=== PATIENT | male | born 1960 | race Caucasian/White ===

== ENCOUNTER 2019-07-16 10:18 | Inpatient (IN) | payer MEDICAID, OTHER ==
[~2019-07-16] VITALS: Ht 182.9 cm; Wt 165.1 kg
[2019-07-16 11:14] LABS: BASO % 1 % (0-3); EOS # 0.1 x10^3/uL (0.0-0.7); EOS % 1 % (0-3); HEMATOCRIT 43.8 % (39.0-53.0); HEMOGLOBIN 14.1 g/dL (13.0-17.5); LYMPH # 1.7 x10^3/uL (1.0-4.8); LYMPH % 25 % (24-48); MEAN CORPUSCULAR HEMOGLOBIN 30 pg (25-35); MEAN CORPUSCULAR HGB CONC 32 g/dL (31-37); MEAN CORPUSCULAR VOLUME 93 fL (79-100); MONO # 0.5 x10^3/uL (0.0-1.1); MONO % 8 % (0-9); NEUT # 4.4 x10^3/uL (1.8-7.7); NEUT % 65 % (31-73); PLATELET COUNT 176 x10^3/uL (140-400); RED BLOOD COUNT 4.72 x10^6/uL (4.30-5.70); RED CELL DISTRIBUTION WIDTH 15.9 % (11.5-14.5); WHITE BLOOD COUNT 6.7 x10^3/uL (4.0-11.0)
[2019-07-16] MEDS ORDERED: NITROGLYCERIN OINT 1 GM PACKET. TP ONE (11:15)
--- NOTE | 2019-07-16 11:17 | PHYS DOC ---
Past Medical History Past Medical History: A-Fib, CHF, Diabetes-Type I, High Cholesterol, Hypertension, Renal Disease Additional Past Medical Histor: Lympedema, BLE cellulitis, PE Past Surgical History: Cholecystectomy, Pacemaker Additional Past Surgical Histo: Cardiac cath, IVC filter Additional Information: Nonsmoker Alcohol Use: None Drug Use: None Adult General Chief Complaint Chief Complaint: SHORTNESS OF BREATH HPI HPI Patient is a 59-year-old male with a past medical history of heart failure, chronic venous stasis, pulmonary emboli with IVC filter, atrial fibrillation on Eliquis, and obesity that is presenting to the emergency department with increased lower extremity edema and shortness of breath. Patient states that over the last week his shortness of breath has increasingly worsened, he uses CPAP during the day and his use has increased. He does not use oxygen at home. Patient is mildly dyspneic during and a few on 2 L nasal cannula. Patient states that his LE swelling has been a problem for a year and his only pain is his legs and his back which is chronic as well. Patient denies chest pain, abdominal pain, nausea, vomiting, fever, chills, headache, confusion, dysuria, and increased frequency. Patient denies trauma. Review of Systems Review of Systems Constitutional: Denies fever or chills Eyes: Denies redness or eye pain HENT: Denies nasal congestion or sore throat Respiratory: Reports cough and shortness breath Cardiovascular: Denies chest pain or palpitations GI: Denies abdominal pain, nausea, or vomiting : Denies dysuria or hematuria Musculoskeletal: Denies joint pain, reports back pain, reports leg swelling Integument: Reports chronic venous stasis bilateral lower extremity Neurologic: Denies headache, focal weakness or sensory changes Complete systems were reviewed and found to be within normal limits, except as documented in this note. Current Medications Current Medications Current Medications Medications (Trade) Dose Ordered Sig/[facility] Start Time Stop Time Status Last Admin Dose Admin Fentanyl Citrate (Fentanyl 2ml Vial) 75 mcg 1X ONCE 07/16/19 11:30 07/16/19 11:31 DC 07/16/19 11:33 75 MCG Nitroglycerin (Nitro-Bid Oint) 0.5 inch 1X ONCE 07/16/19 11:15 07/16/19 11:16 DC 07/16/19 11:13 0.5 INCH Allergies Allergies Allergies Coded Allergies Type Severity Reaction Last Updated Verified No Known Drug Allergies 07/16/19 No Physical Exam Physical Exam Constitutional: Well developed, well nourished, no acute distress, non-toxic appearance HENT: Normocephalic, atraumatic, oropharynx moist Eyes: Conjunctiva normal, no discharge Neck: Normal range of motion, no tenderness, supple Cardiovascular: Paced rate, regular rhythm, no murmur Lungs & Thorax: Crackles heard throughout, no wheezing Abdomen: Soft, no tenderness, distended Skin: Warm, dry, no erythema, BLE chronic venous stasis noted Back: No tenderness, no CVA tenderness Extremities: No tenderness, ROM intact, BLE 3+ edema with chronic venous stasis Neurologic: Alert and oriented X 3, no focal deficits noted Psychologic: Affect normal, judgement normal Current Patient Data Vital Signs Vital Signs Date Time Temp Pulse Resp B/P (MAP) Pulse Ox O2 Delivery O2 Flow Rate FiO2 07/16/19 11:37 86 22 116/86 (96) 97 Nasal Cannula 2.0 07/16/19 10:20 98.6 98.6 Lab Values Laboratory Tests Test 07/16/19 10:50 White Blood Count 6.7 x10^3/uL (4.0-11.0) Red Blood Count 4.72 x10^6/uL (4.30-5.70) Hemoglobin 14.1 g/dL (13.0-17.5) Hematocrit 43.8 % (39.0-53.0) Mean Corpuscular Volume 93 fL (79-100) Mean Corpuscular Hemoglobin 30 pg (25-35) Mean Corpuscular Hemoglobin Concent 32 g/dL (31-37) Red Cell Distribution Width 15.9 % (11.5-14.5) H Platelet Count 176 x10^3/uL (140-400) Neutrophils (%) (Auto) 65 % (31-73) Lymphocytes (%) (Auto) 25 % (24-48) Monocytes (%) (Auto) 8 % (0-9) Eosinophils (%) (Auto) 1 % (0-3) Basophils (%) (Auto) 1 % (0-3) Neutrophils # (Auto) 4.4 x10^3/uL (1.8-7.7) Lymphocytes # (Auto) 1.7 x10^3/uL (1.0-4.8) Monocytes # (Auto) 0.5 x10^3/uL (0.0-1.1) Eosinophils # (Auto) 0.1 x10^3/uL (0.0-0.7) Basophils # (Auto) 0.0 x10^3/uL (0.0-0.2) Sodium Level 141 mmol/L (136-145) Potassium Level 3.9 mmol/L (3.5-5.1) Chloride Level 102 mmol/L (98-107) Carbon Dioxide Level 33 mmol/L (21-32) H Anion Gap 6 (6-14) Blood Urea Nitrogen 24 mg/dL (8-26) Creatinine 1.3 mg/dL (0.7-1.3) Estimated GFR (Cockcroft-Gault) 56.7 BUN/Creatinine Ratio 18 (6-20) Glucose Level 109 mg/dL (70-99) H Lactic Acid Level 1.2 mmol/L (0.4-2.0) Calcium Level 8.8 mg/dL (8.5-10.1) Magnesium Level 1.9 mg/dL (1.8-2.4) Total Bilirubin 0.9 mg/dL (0.2-1.0) Aspartate Amino Transferase (AST) 14 U/L (15-37) L Alanine Aminotransferase (ALT) 10 U/L (16-63) L Alkaline Phosphatase 58 U/L (46-116) Creatine Kinase 78 U/L (39-308) Creatine Kinase MB (Mass) 2.1 ng/mL (0.0-3.6) Creatine Kinase MB Relative Index 2.7 % (0-4) Troponin I Quantitative < 0.017 ng/mL (0.000-0.055) GY-Ips-V-Type Natriuretic Peptide 2561 pg/mL (0-124) H Total Protein 6.7 g/dL (6.4-8.2) Albumin 3.0 g/dL (3.4-5.0) L Albumin/Globulin Ratio 0.8 (1.0-1.7) L Lipase 39 U/L (73-393) L Laboratory Tests 07/16/19 10:50 Laboratory Tests 07/16/19 10:50 EKG EKG EKG at 1116 irregular rhythm at 104 bpm, atrial fibrillation, intermittent paced rhythm, left axis deviation. Radiology/Procedures Radiology/Procedures PROCEDURE: CHEST PA & LATERAL Chest, PA and Lateral: Technique: PA and lateral views of the chest were obtained. History: Shortness of breath, congestive heart failure. Comparison: None. Findings: Left-sided cardiac pacer is identified.. Bibasilar lung consolidation changes likely pneumonia or atelectasis. Mild prominent bilateral interstitial lung markings.. . Impression: 1.Bibasilar lung consolidation changes, right greater than left, likely pneumonia, follow-up to resolution. 2. Mild prominent bilateral interstitial lung markings likely congestive changes. Electronically signed by: Ney Bermudez MD (07/16/2019 11:19 AM) [facility] Course & Med Decision Making Course & Med Decision Making Pertinent Labs and Imaging studies reviewed. (See chart for details) Patient is a 59-year-old male past medical history of heart failure, chronic venous stasis, pulmonary emboli with IVC filter, atrial fibrillation on Eliquis, and obesity is presenting to emergency department with increased shortness of breath and increased lower extremity edema. Patient was seen and examined on that side. Physical exam was significant for dyspnea, crackles heard throughout, draining chronic venous stasis, distended abdomen, and leg tenderness. Labs and imaging ordered. EKG at 1116 irregular rhythm at 104 bpm, atrial fibrillation, intermittent paced rhythm, left axis deviation. Chest x-ray shows bibasilar opacities right greater than left, right side representing pleural effusion versus pneumonia, clinical picture supports congestive heart failure exacerbation, white count normal, no fever, no changes in sputum production. Will continue to treat congestive heart failure exacerbation and will forego antibiotics at this time. Initial troponin negative, lipase negative, BNP elevated, lactic acid normal, all others labs at baseline. Patient will be admitted for CHF exacerbation. IV lasix given. Patient requiring admission for further evaluation and treatment. Discussed with Dr. Bajwa (PCP) who is in agreement with admission. Discussed findings and plan with patient, who acknowledges understanding and agreement. Dragon Disclaimer Dragon Disclaimer This electronic medical record was generated, in whole or in part, using a voice recognition dictation system. Departure Departure Impression: Primary Impression: Acute exacerbation of CHF (congestive heart failure) Disposition: ADMITTED INPATIENT Admitting Physician: Madi. Hurst Condition: STABLE Problem Qualifiers Primary Impression: Acute exacerbation of CHF (congestive heart failure) Heart failure type: unspecified Qualified Codes: I50.9 - Heart failure, unspecified FLACA HERNANDEZ DO Jul 16, 2019 11:17
--- NOTE | 2019-07-16 11:22 | RAD ---
Chest, PA and Lateral: Technique: PA and lateral views of the chest were obtained. History: Shortness of breath, congestive heart failure. Comparison: None. Findings: Left-sided cardiac pacer is identified.. Bibasilar lung consolidation changes likely pneumonia or atelectasis. Mild prominent bilateral interstitial lung markings.. . Impression: 1.Bibasilar lung consolidation changes, right greater than left, likely pneumonia, follow-up to resolution. 2. Mild prominent bilateral interstitial lung markings likely congestive changes. Electronically signed by: Ney Bermudez MD (07/16/2019 11:19 AM) [facility]
[2019-07-16 11:28] LABS: CALCIUM 8.8 mg/dL (8.5-10.1); CREATININE 1.3 mg/dL (0.7-1.3); GFR 56.7; POTASSIUM 3.9 mmol/L (3.5-5.1)
[2019-07-16] MEDS ORDERED: fentaNYL PF VIAL 100 MCG/2 ML VIAL IV ONE (11:30)
[2019-07-16 11:35] LABS: ALBUMIN/GLOBULIN RATIO 0.8 (1.0-1.7); MAGNESIUM 1.9 mg/dL (1.8-2.4); TOTAL BILIRUBIN 0.9 mg/dL (0.2-1.0); TOTAL PROTEIN 6.7 g/dL (6.4-8.2)
[2019-07-16] MEDS ORDERED: DEXTROSE 50% 25 GM / 50ML DISP.SYRIN. IV PRN (11:45)
[2019-07-16] MEDS ORDERED: FUROSEMIDE 40 MG/4 ML VIAL. IVP ONE (11:45)
[2019-07-16] MEDS ORDERED: IV DEXTROSE 5% 250 ML BAG. IV PRN (11:45)
[2019-07-16] MEDS ORDERED: ONDANSETRON PF 4 MG/2 ML VIAL. IV PRN (11:45)
[2019-07-16] MEDS: INSULIN LISPRO 300 UNITS/3 ML VIAL. SQ SCH ×3 (12:00→17:00)
[2019-07-16 13:50] VITALS: BP 127/86
[2019-07-16] MEDS ORDERED: ENAL2.5T PO (15:22)
[2019-07-16] MEDS ORDERED: CALC500T31 PO (15:22)
[2019-07-16] MEDS ORDERED: ATOR20TA58 PO (15:22)
[2019-07-16] MEDS ORDERED: AMIO200T4 PO (15:22)
[2019-07-16] MEDS ORDERED: ACET325T21 PO (15:22)
[2019-07-16] MEDS ORDERED: BISA10SU55 RC (15:22)
[2019-07-16] MEDS ORDERED: APIX5TAB PO (15:22)
[2019-07-16] MEDS ORDERED: CARV3.1210 PO (15:22)
[2019-07-16] MEDS ORDERED: MELA3TAB43 PO (15:23)
[2019-07-16] MEDS ORDERED: MAGN2400 PO (15:23)
[2019-07-16] MEDS ORDERED: GABA600T7 PO (15:23)
[2019-07-16] MEDS ORDERED: METO5TAB4 PO (15:23)
[2019-07-16] MEDS ORDERED: ONDA4TAB7 PO (15:23)
[2019-07-16] MEDS ORDERED: POTA20TA4 PO (15:23)
[2019-07-16] MEDS ORDERED: SENN8.6T11 PO (15:23)
[2019-07-16] MEDS ORDERED: FURO40TA4 PO (15:23)
[2019-07-16] MEDS ORDERED: INSU100V13 SQ (15:23)
[2019-07-16] MEDS ORDERED: HYDR-3135 PO (15:23)
[2019-07-16] MEDS ORDERED: POLY2500 MC (15:23)
[2019-07-16] MEDS ORDERED: ALBU2.5V8 IH (15:23)
[2019-07-16] MEDS ORDERED: INSU100C4 SQ (15:23)
[2019-07-16] MEDS ORDERED: ACETAMINOPHEN 325 MG TABLET. PO PRN (15:30)
[2019-07-16] MEDS ORDERED: BISACODYL 10 MG SUPP.RECT. RC PRN (15:30)
[2019-07-16] MEDS ORDERED: ALBUTEROL SULFATE 2.5 MG/3 ML NEBU. NEB PRN (15:30)
[2019-07-16] MEDS ORDERED: CALCIUM CARBONATE 500 MG TABLET PO PRN (15:30)
[2019-07-16] MEDS ORDERED: POLYETHYLENE GLYCOL 3350 17 GM PACKET. PO PRN (15:39)
[2019-07-16] MEDS ORDERED: MAGNESIUM HYDROXIDE 2,400 MG/30 ML ORAL.SUSP. PO PRN (15:45)
[2019-07-16] MEDS ORDERED: ONDANSETRON ODT 4 MG TAB.RAPDIS. PO PRN (15:45)
[2019-07-16] MEDS: CARVEDILOL 3.125 MG TABLET. PO SCH (17:02)
[2019-07-16] MEDS: POTASSIUM CHLORIDE 20 MEQ TABLET.ER. PO SCH (17:02)
[2019-07-16] MEDS: FUROSEMIDE 40 MG/4 ML VIAL. IVP SCH (17:05)
[2019-07-16 19:20] VITALS: BP 103/72
[2019-07-16] MEDS ORDERED: NON FORMULARY ITEM (Melatonin 3 MG) PO SCH (21:00)
[2019-07-16] MEDS: ATORVASTATIN CALCIUM 20 MG TABLET PO SCH (21:48)
[2019-07-16] MEDS: GABAPENTIN 300 MG CAPSULE. PO SCH (21:48)
[2019-07-16] MEDS: APIXABAN 5 MG TABLET. PO SCH (21:48)
[2019-07-16] MEDS: INSULIN GLARGINE SYRINGE. SQ SCH (21:54)
[2019-07-16] MEDS: traZODone 50 MG TABLET. PO PRN (22:21)
[2019-07-16] MEDS: HYDROcodone/APAP 5/325MG 1 TAB TABLET PO PRN (22:21)
[2019-07-16 22:50] VITALS: BP 134/91
[2019-07-17 03:05] VITALS: BP 120/85
[2019-07-17 04:27] LABS: BASO % 1 % (0-3); EOS # 0.1 x10^3/uL (0.0-0.7); EOS % 2 % (0-3); HEMATOCRIT 42.6 % (39.0-53.0); HEMOGLOBIN 13.9 g/dL (13.0-17.5); LYMPH # 1.9 x10^3/uL (1.0-4.8); LYMPH % 32 % (24-48); MEAN CORPUSCULAR HEMOGLOBIN 30 pg (25-35); MEAN CORPUSCULAR HGB CONC 33 g/dL (31-37); MEAN CORPUSCULAR VOLUME 93 fL (79-100); MONO # 0.6 x10^3/uL (0.0-1.1); MONO % 10 % (0-9); NEUT # 3.2 x10^3/uL (1.8-7.7); NEUT % 55 % (31-73); PLATELET COUNT 169 x10^3/uL (140-400); RED BLOOD COUNT 4.58 x10^6/uL (4.30-5.70); RED CELL DISTRIBUTION WIDTH 15.9 % (11.5-14.5); WHITE BLOOD COUNT 5.9 x10^3/uL (4.0-11.0)
[2019-07-17 04:55] LABS: CALCIUM 8.5 mg/dL (8.5-10.1); CREATININE 1.3 mg/dL (0.7-1.3); GFR 56.7; MAGNESIUM 2.2 mg/dL (1.8-2.4); POTASSIUM 4.2 mmol/L (3.5-5.1)
[2019-07-17 07:00] VITALS: BP 112/78
--- NOTE | 2019-07-17 07:28 | EKG ---
[facility] [address] [place] [address] Test Date: 2019-07-16 Test Time: 11:16:47 Pat Name: FLACA VEGA Department: Room: 252 1 Gender: M Paint Tester: : 1960 Requested By: FLACA HERNANDEZ Order Number: [id number] Reading MD: Law Carter MD Measurements Intervals [place] Rate: 104 P: NV: QRS: -52 QRSD: 106 T: 19 QT: 386 QTc: 515 Interpretive Statements V-PACING UNDERLYING ATRIAL FIBRILLATION Electronically Signed On 07-17-2019 11:50:02 NATURAL SCIENCE MANAGER by Law Carter MD
[2019-07-17] MEDS: HYDROcodone/APAP 5/325MG 1 TAB TABLET PO PRN ×3 (07:34→22:23)
[2019-07-17] MEDS: INSULIN LISPRO 300 UNITS/3 ML VIAL. SQ SCH ×5 (08:00→17:00)
[2019-07-17] MEDS: APIXABAN 5 MG TABLET. PO SCH ×2 (08:50→22:22)
[2019-07-17] MEDS: POTASSIUM CHLORIDE 20 MEQ TABLET.ER. PO SCH ×3 (08:50→17:00)
[2019-07-17] MEDS: SENNOSIDES 8.6 MG TABLET PO SCH (08:50)
[2019-07-17] MEDS: CARVEDILOL 3.125 MG TABLET. PO SCH ×2 (08:50→17:00)
[2019-07-17] MEDS: AMIODARONE HCL 200 MG TABLET. PO SCH (08:50)
[2019-07-17] MEDS: metOLazone 2.5 MG TABLET PO SCH (08:51)
[2019-07-17] MEDS: FUROSEMIDE 40 MG/4 ML VIAL. IVP SCH ×2 (08:51→14:43)
[2019-07-17] MEDS: NYSTATIN TOPICAL POWDER 15GM BOTTLE. TP SCH ×2 (08:58→22:22)
[2019-07-17] MEDS: INSULIN GLARGINE SYRINGE. SQ SCH ×2 (09:00→22:37)
[2019-07-17 11:00] VITALS: BP 104/68
--- NOTE | 2019-07-17 12:09 | HP ---
ADMIT DATE: 07/16/2019 HISTORY OF PRESENT ILLNESS: The patient is a 59-year-old male patient who was at [facility] for rehab and was discharged with home health. He has been at home only for 2 days and he came back with worsening shortness of breath and marked weight gain. According to nursing staff, he has gained about 25 pounds. He also complained of orthopnea and paroxysmal nocturnal dyspnea and worsening swelling of both lower extremities. He uses CPAP during day and his use has increased, and therefore, he was sent to the Emergency Room of [facility] for further evaluation and treatment. His lab work showed that his white cell count was normal and his chemistry was unremarkable. His chest x-ray showed that he has bibasilar lung consolidation changes, likely pneumonia or atelectasis, mildly prominent bilateral interstitial lung marking and was admitted with diagnosis of acute on chronic, probably diastolic congestive heart failure. He also has morbid obesity, obstructive sleep apnea. I did switch him to IV Lasix and added metolazone and consulted the cardiology team to assist with his treatment. 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 PAST SURGICAL HISTORY: Significant for cholecystectomy, permanent pacemaker placement, cardiac catheterization and IVC filter placement. ALLERGIES: He has no known drug allergies. MEDICATIONS: He is currently on following medications: He is on albuterol sulfate 2 puffs every 6 hours, apixaban 5 mg twice a day, amiodarone 200 mg once a day, atorvastatin calcium 20 mg once a day, carvedilol 3.125 mg twice a day with meals, enalapril 2.5 mg once a day, hydrocodone/APAP 10/325 one tablet every 4 hours, Tylenol 650 mg every 4-6 hours, gabapentin 300 mg at bedtime, calcium carbonate 500 mg every 6 hours, potassium chloride 20 mEq once a day, furosemide 40 mg twice a day and metolazone 5 mg daily. He is on bisacodyl 10 mg suppository daily p.r.n. for constipation, milk of magnesia 30 mL p.o. daily p.r.n. for constipation, senna 1 tablet once a day, ondansetron 4 mg every 6 hours. He is on NovoLog 10 units subcutaneously twice a day and Levemir 45 units subcutaneously twice a day, melatonin 3 mg at bedtime, polyethylene glycol 17 g daily p.r.n. for constipation. REVIEW OF SYSTEMS: As per history of present illness. PHYSICAL EXAMINATION: GENERAL: On arrival to the Emergency Room, the patient was somewhat tachypneic, but there was no pallor, jaundice, cyanosis or thyromegaly. No jugular venous distention, but marked bilateral lower extremity lymphedema. VITAL SIGNS: His heart rate was 96, blood pressure was 123/81, temperature was 98.6, respiratory rate was 28 and oxygen saturation was 96% on 2 liters of oxygen. HEAD, EYES, EARS, NOSE AND THROAT: Normocephalic, atraumatic. NECK: Supple. CARDIAC: Normal first and second sounds. No gallop, rub or murmur. CHEST: Clear to auscultation. No crepitation or rhonchi. ABDOMEN: Distended, soft, nontender. NEUROLOGIC: He was awake, alert, responding appropriately. All his cranial nerves are intact. He moves extremities without difficulty. He ambulates with a walker. EXTREMITIES: Showed no clubbing, cyanosis, but marked bilateral lower extremity chronic venous stasis. LABORATORY DATA: On admission showed a white cell count 6700, hemoglobin 14, hematocrit 44, MCV 93 and platelet count of 176,000. His chemistry showed a serum sodium 141, potassium 3.9, chloride 102, bicarbonate 33, anion gap of 6, BUN 24, creatinine 1.3, estimated GFR was 56 mL per minute, his glucose 109, calcium was 8.8, magnesium was 1.9. Total bilirubin, AST, ALT, alkaline phosphatase were normal. Total protein was 6.7, albumin 3. His beta natriuretic peptide was 2560 and troponin was less than 0.07. Lactic acid was only 1.2. ASSESSMENT AND PLAN: In summary, this is a 59-year-old male patient who was admitted with increasing shortness of breath, orthopnea and dramatic weight gain of about 25 pounds. He denied any chest pain. Clinically and radiologically seemed to be in congestive heart failure. I did switch him to IV Lasix 40 mg twice a day as well as metolazone 5 mg once a day and we will do 2 more sets of cardiac enzyme and consult the cardiology team. Meanwhile, we will continue with all his other medications. Continue with his CPAP. ELIEL MOSER MD DR: LING/gia JOB#: [id number] / [id number]
--- NOTE | 2019-07-17 12:48 | PDOC2 ---
[facility] [employer] 07/17/19 1248: CARDIAC CONSULT DATE OF CONSULT Date of Consult DATE: 07/17/19 TIME: 12:42 REASON FOR CONSULT Reason for Consult: CHF REFERRING PHYSICIAN Referring Physician: Dr. Bajwa SOURCE Source: Chart review, Patient HISTORY OF PRESENT ILLNESS HISTORY OF PRESENT ILLNESS This is a 59 yo male who presented secondary to shortness of breath and increased LE edema. Patient reports symptoms started about a month ago. Much worse that last weeks. Associated with orthopnea. No CP, dizziness, diaphoresis, palpitations, or nausea/vomiting. Has a history of NICM. Cath earlier this year at [facility] without obstructive disease. AICD was placed over the summer at [facility]. Follows with Dr. Mojica. Reports compliance with meds and dietary Na intake. PAST MEDICAL HISTORY Cardiovascular: AFIB (s/p CV), CHF, HTN, Hyperlipidemia, Other (PAD) Pulmonary: Other (ALESSANDRO) CENTRAL NERVOUS SYSTEM: Periperal neuropathy Heme/Onc: Other (DVT/PE) Psych: Anxiety, Depression Endocrine: Diabetes PAST SURGICAL HISTORY Past Surgical History: Pacemaker (AICD), Cholecystectomy FAMILY HISTORY Family History: Diabetes, Heart Disease, Hypertension SOCIAL HISTORY Smoke: No ALCOHOL: none Drugs: None Lives: Alone CURRENT MEDICATIONS CURRENT MEDICATIONS Current Medications Medications (Trade) Dose Ordered Sig/[facility]by Route PRN Reason Start Time Stop Time Status Last Admin Dose Admin Acetaminophen (Tylenol) 650 mg PRN Q4HRS PRN PO pain or fever 07/16/19 15:30 07/16/19 17:51 Amiodarone HCl (Cordarone) 200 mg DAILY PO 07/17/19 09:00 07/17/19 08:50 Apixaban (Eliquis) 5 mg BID PO 07/16/19 21:00 07/17/19 08:50 Atorvastatin Calcium (Lipitor) 20 mg HS PO 07/16/19 21:00 07/16/19 21:48 Carvedilol (Coreg) 3.125 mg BIDWMEALS PO 07/16/19 17:00 07/17/19 08:50 Sennosides (Senna) 8.6 mg DAILY PO 07/17/19 09:00 07/17/19 08:50 Gabapentin (Neurontin) 300 mg QHS PO 07/16/19 21:00 07/16/19 21:48 Insulin Glargine (Lantus Syringe) 45 unit BID SQ 07/16/19 21:00 07/17/19 11:47 DC 07/16/19 21:54 Metolazone (Zaroxolyn) 5 mg DAILY PO 07/17/19 09:00 07/17/19 08:51 Furosemide (Lasix) 40 mg BID92 IVP 07/16/19 16:30 07/17/19 08:51 Potassium Chloride (Klor-Con) 20 meq TIDWMEALS PO 07/16/19 17:00 07/17/19 08:50 Acetaminophen/ Hydrocodone Bitart (Lortab 5/325) 1 tab PRN Q4HRS PRN PO PAIN 07/16/19 22:15 07/16/19 22:21 Acetaminophen/ Hydrocodone Bitart (Lortab 5/325) 2 tab PRN Q4HRS PRN PO PAIN 07/16/19 22:15 07/17/19 07:34 Nystatin (Nystop) 1 yuki BID TP 07/17/19 09:00 07/17/19 08:58 Trazodone HCl (Desyrel) 50 mg PRN QHS PRN PO INSOMNIA 07/16/19 22:15 07/16/19 22:21 ALLERGIES ALLERGIES: Coded Allergies: No Known Drug Allergies (Unverified , 07/16/19) ROS Review of System 14 point ROS conducted with pertinent positives noted above in HPI PHYSICAL EXAM General: Alert, Oriented X3, Cooperative, mild distress HEENT: Atraumatic, Mucous membr. moist/pink Lungs: Other (crackles ) Heart: Other (AFIB with controlled rate, 2/6 systolic murmur ) Abdomen: Soft, Other (obese ) Extremities: Other (chronic venous stasis changes, 1-2+ bilateral LE edema) Neuro: Normal speech, Sensation intact Psych/Mental Status: Mental status NL, Mood NL MUSCULOSKELETAL: Osteoarthritic changes both hands VITALS/I&O VITALS/I&O: Vital Signs Date Time Temp Pulse Resp B/P (MAP) Pulse Ox O2 Delivery O2 Flow Rate FiO2 07/17/19 11:00 97.3 72 18 104/68 (80) 92 Room Air 97.3 07/16/19 20:00 2.0 I & O 07/16/19 07/16/19 07/17/19 14:59 22:59 06:59 Intake Total 200 ml Output Total 1350 ml Balance -1350 ml 200 ml LABS Lab: Laboratory Tests Test 07/16/19 14:07 07/16/19 14:50 07/16/19 17:24 07/16/19 18:00 Glucose (Fingerstick) 83 mg/dL (70-99) 109 mg/dL (70-99) H Troponin I Quantitative < 0.017 ng/mL (0.000-0.055) < 0.017 ng/mL (0.000-0.055) Test 07/16/19 20:30 07/17/19 03:00 07/17/19 07:22 07/17/19 08:01 Glucose (Fingerstick) 153 mg/dL (70-99) H 49 mg/dL (70-99) L 90 mg/dL (70-99) White Blood Count 5.9 x10^3/uL (4.0-11.0) Red Blood Count 4.58 x10^6/uL (4.30-5.70) Hemoglobin 13.9 g/dL (13.0-17.5) Hematocrit 42.6 % (39.0-53.0) Mean Corpuscular Volume 93 fL (79-100) Mean Corpuscular Hemoglobin 30 pg (25-35) Mean Corpuscular Hemoglobin Concent 33 g/dL (31-37) Red Cell Distribution Width 15.9 % (11.5-14.5) H Platelet Count 169 x10^3/uL (140-400) Neutrophils (%) (Auto) 55 % (31-73) Lymphocytes (%) (Auto) 32 % (24-48) Monocytes (%) (Auto) 10 % (0-9) H Eosinophils (%) (Auto) 2 % (0-3) Basophils (%) (Auto) 1 % (0-3) Neutrophils # (Auto) 3.2 x10^3/uL (1.8-7.7) Lymphocytes # (Auto) 1.9 x10^3/uL (1.0-4.8) Monocytes # (Auto) 0.6 x10^3/uL (0.0-1.1) Eosinophils # (Auto) 0.1 x10^3/uL (0.0-0.7) Basophils # (Auto) 0.0 x10^3/uL (0.0-0.2) Sodium Level 143 mmol/L (136-145) Potassium Level 4.2 mmol/L (3.5-5.1) Chloride Level 105 mmol/L (98-107) Carbon Dioxide Level 27 mmol/L (21-32) Anion Gap 11 (6-14) Blood Urea Nitrogen 23 mg/dL (8-26) Creatinine 1.3 mg/dL (0.7-1.3) Estimated GFR (Cockcroft-Gault) 56.7 Glucose Level 77 mg/dL (70-99) Calcium Level 8.5 mg/dL (8.5-10.1) Magnesium Level 2.2 mg/dL (1.8-2.4) ZT-Lhz-L-Type Natriuretic Peptide 2576 pg/mL (0-124) H Test 07/17/19 12:03 Glucose (Fingerstick) 78 mg/dL (70-99) Laboratory Tests 07/17/19 03:00 Laboratory Tests 07/17/19 03:00 ASSESSMENT/PLAN ASSESSMENT/PLAN 1. Acute on chronic systolic CHF; triggered by AFIB? Reports compliance with fluid and Na intake 2. Non-ischemic cardiomyopathy; s/p AICD ([facility])- place 01/2019. Leora reagan this year reportedly without obstructive CAD 3. PAFIB; s/p previous CV. On Amiodarone. Presently AFIB with controlled rate 4. Hypertension; controlled 5. Hyperlipidemia 6. Diabetes, II 7. H/o PE/DVT; s/p IVC filter. On Eliquis 8. Morbid obesity 9. Venous insufficiency Recommendations Diuresis HF optimization therapy Device interrogation. Note AFIB burden, guide antiarrhythmic therapy Continue Amiodarone therapy for now. Continue Eliquis for stroke prophylaxis Obtain records from [facility] Consider addition of SILVANO Blanco MD 07/17/19 0717: CARDIAC CONSULT ASSESSMENT/PLAN ASSESSMENT/PLAN Pt. seen and examined. Agree with above VETERINARY ATTENDANT note. 59 y.o male with presumed nonischemic cardio myopathy. Plan for aggressive diuresis and continuation of current medical therapy. We will await interrogation of the ICD to rule out any significant atrial fibrillation burden He's had a history of significant A. fib burden may been discontinued amiodarone as it is not been able to keep him in sinus rhythm. Supportive care for now. Await outside hospital records. Continue aggressive d PETER Hoffman APRN Jul 17, 2019 12:48 SILVANO MIRANDA MD Jul 17, 2019 17:23
[2019-07-17 15:00] VITALS: BP 127/89
--- NOTE | 2019-07-17 17:46 | NUR ---
Wound Care Pt seen for wound consult re: RLE, see wound assessment. Pt has 2 open areas on his right lower leg, slough covered, periwound edematous and red, with skin changes consistent with Lymphedema. Per pt, he dropped something on his leg causing the wounds. Wounds cleaned, lotion to BLE, wounds covered with Medihoney, Xeroform gauze, ABD and kerlix, Size G Medigrip applied to BLE from base of toes to just below knees, and pt educated on leg elevation to help with swelling, pt v/u, but continued to sit with legs in dependent position. No other wounds noted on full skin inspection, although buttocks are red, but blanchable, will order a wheelchair cushion for recliner. Pt asking where he is and how he got here, informed ALE Burris of sudden change in mentation, and bed alarm set, ROPING MACHINE TENDER at bedside. Will continue to follow for wound care needs.
[2019-07-17] MEDS ORDERED: ALBUTEROL SULFATE 2.5 MG/3 ML NEBU. NEB PRN (19:00)
[2019-07-17 19:42] VITALS: BP 134/95
[2019-07-17] MEDS: GABAPENTIN 300 MG CAPSULE. PO SCH (22:22)
[2019-07-17] MEDS: ATORVASTATIN CALCIUM 20 MG TABLET PO SCH (22:23)
[2019-07-17 22:26] VITALS: BP 117/92
[2019-07-18 03:35] VITALS: BP 132/81
[2019-07-18 05:51] LABS: CREATININE 1.4 mg/dL (0.7-1.3); GFR 52.1; MAGNESIUM 1.9 mg/dL (1.8-2.4); POTASSIUM 3.6 mmol/L (3.5-5.1)
[2019-07-18 07:00] VITALS: BP 137/97
[2019-07-18] MEDS: INSULIN LISPRO 300 UNITS/3 ML VIAL. SQ SCH ×5 (08:00→17:00)
[2019-07-18] MEDS: metOLazone 2.5 MG TABLET PO SCH (09:25)
[2019-07-18] MEDS: SENNOSIDES 8.6 MG TABLET PO SCH (09:26)
[2019-07-18] MEDS: CARVEDILOL 3.125 MG TABLET. PO SCH (09:26)
[2019-07-18] MEDS: POTASSIUM CHLORIDE 20 MEQ TABLET.ER. PO SCH ×3 (09:26→18:05)
[2019-07-18] MEDS: AMIODARONE HCL 200 MG TABLET. PO SCH (09:26)
[2019-07-18] MEDS: APIXABAN 5 MG TABLET. PO SCH ×2 (09:27→22:09)
[2019-07-18] MEDS: FUROSEMIDE 40 MG/4 ML VIAL. IVP SCH ×2 (09:28→14:38)
[2019-07-18] MEDS: LISINOPRIL 5 MG TABLET. PO SCH (09:33)
[2019-07-18] MEDS: NYSTATIN TOPICAL POWDER 15GM BOTTLE. TP SCH ×2 (09:33→22:10)
--- NOTE | 2019-07-18 10:35 | PDOC ---
PETER BURNETT CORPORATE INTERN 07/18/19 1035: CARDIO Progress Notes Date and Time Date of Service 07/18/19 Time of Evaluation 1020 Subjective Subjective: No Chest Pain, Other (shortness of breath and LE edema improving ) Vitals Vitals Vital Signs Date Time Temp Pulse Resp B/P (MAP) Pulse Ox O2 Delivery O2 Flow Rate FiO2 07/18/19 09:33 104 137/97 07/18/19 07:00 97.6 16 90 Room Air 97.6 07/17/19 23:23 15.0 Weight Weight [ ] Input and Output Intake and Output Intake and Output 07/18/19 07:00 Intake Total 1250 ml Output Total 3650 ml Balance -2400 ml Intake Oral 1250 ml Output Urine Total 3650 ml Laboratory Labs Laboratory Tests Test 07/17/19 12:03 07/17/19 17:21 07/17/19 20:34 07/18/19 05:05 Glucose (Fingerstick) 78 mg/dL (70-99) 113 mg/dL (70-99) 163 mg/dL (70-99) Sodium Level 142 mmol/L (136-145) Potassium Level 3.6 mmol/L (3.5-5.1) Chloride Level 102 mmol/L (98-107) Carbon Dioxide Level 33 mmol/L (21-32) Anion Gap 7 (6-14) Blood Urea Nitrogen 23 mg/dL (8-26) Creatinine 1.4 mg/dL (0.7-1.3) Estimated GFR (Cockcroft-Gault) 52.1 Glucose Level 132 mg/dL (70-99) Calcium Level 9.0 mg/dL (8.5-10.1) Magnesium Level 1.9 mg/dL (1.8-2.4) Test 07/18/19 05:53 07/18/19 07:37 Glucose (Fingerstick) 138 mg/dL (70-99) 150 mg/dL (70-99) Physical Exam HEENT: Neck Supple W Full Motion Chest: Symmetric LUNGS: Other (diminished bases) Heart: S1S2, irregularly irregular Abdomen: Soft N/T, Other (obese ) Extremities: Other (2+ bilateral LE edema ) Neurology: alert, oriented, follow commands Assessment Assessment 1. Acute on chronic systolic CHF; fluid volume ^ since April per device interrogation. Good UOP with diuresis 2. Non-ischemic cardiomyopathy; s/p AICD ([employer])- device interrogation in 100% AFIB burden since implantation. 3. Persistent AIFB; rate controlled overall. Intermittent RVR noted 4. Hypertension; controlled 5. Hyperlipidemia 6. Diabetes, II 7. H/o PE/DVT; s/p IVC filter. On Eliquis 8. Morbid obesity 9. Venous insufficiency Recommendations Ongoing diuresis; monitor Cr. May need RHC HF optimization therapy. BB, ACEi, lasix. Reinforced 2000cc FR Discontinue Amidorone as he is 100% AFIB Will convert coreg to Toprol for better rate control. RVR may be contributing to acute CHF Continue Eliquis for stroke prophylaxis Await records from [facility] Consider addition of Entresto Supportive care SILVANO MIRANDA MD 07/19/19 1523: CARDIO Progress Notes Plan Plan Late entry for 07/18/2019. Pt. seen and examined. Agree with above GEOGRAPHIC AREA INTELLIGENCE OFFICER note. PETER BURNETT APRN Jul 18, 2019 10:35 SILVANO MIRANDA MD Jul 19, 2019 15:23
[2019-07-18 11:00] VITALS: BP 124/79
[2019-07-18] MEDS ORDERED: METOPROLOL SUCC 24HR ER 50 MG TAB.ER.24H. PO SCH (11:00)
[2019-07-18 15:00] VITALS: BP 132/92
[2019-07-18 19:00] VITALS: BP 112/82
[2019-07-18] MEDS: HYDROcodone/APAP 5/325MG 1 TAB TABLET PO PRN (22:09)
[2019-07-18] MEDS: GABAPENTIN 300 MG CAPSULE. PO SCH (22:09)
[2019-07-18] MEDS: ATORVASTATIN CALCIUM 20 MG TABLET PO SCH (22:09)
[2019-07-18] MEDS: INSULIN GLARGINE SYRINGE. SQ SCH (22:18)
[2019-07-18 23:00] VITALS: BP 157/93
--- NOTE | 2019-07-18 23:37 | PN ---
DATE: 07/18/2019 SUBJECTIVE: The patient is resting, slightly propped up in bed, sleeping comfortably with BiPAP machine on. On questioning him, he denied any complaint. The nursing staff stated that the patient has been sleepy, apparently has not slept last night very well, although on questioning him, he denied any chest pain or shortness of breath. PHYSICAL EXAMINATION: GENERAL: When I examined him, he looked pale, but no jaundice, cyanosis or thyromegaly. No jugular venous distention. Marked bilateral lower limb edema. VITAL SIGNS: His heart rate was 100, blood pressure was 137/97, temperature was 97.6, respiratory rate was 16, and oxygen saturation was 90% on room air. HEAD, EYES, EARS, NOSE AND THROAT: Showed normocephalic, atraumatic. NECK: Supple. CARDIAC: Normal first and second heart sounds. No gallop or murmur. CHEST: Clear to auscultation. No crepitation or rhonchi. ABDOMEN: Markedly distended, soft, nontender. NEUROLOGIC: He is sleepy, but arousable. All cranial nerves intact. He moves extremities without difficulty. His intake over the last 24 hours was 200, output was 1350. LABORATORY DATA: His white cell count is 5900, hemoglobin 14, hematocrit 42, MCV 93, and platelet count of 169,000. His chemistry showed a serum sodium 142, potassium 3.6, chloride 102, bicarbonate 33, anion gap of 7, BUN 23, creatinine 1.4, estimated GFR was 52 mL per minute, his glucose 132, calcium was 9, magnesium was 1.9. ASSESSMENT: 1. Acute on chronic systolic congestive heart failure. 2. Nonischemic cardiomyopathy, status post automatic implantable cardioverter-defibrillator. Apparently cardiac catheterization showed nonobstructive coronary artery disease. 3. Paroxysmal atrial fibrillation, status post previous cerebrovascular accident on amiodarone. 4. Hypertension, well controlled. 5. Hyperlipidemia. 6. Type 2 diabetes mellitus. 7. Morbid obesity and obstructive sleep apnea, on CPAP. 8. History of pulmonary embolism and deep venous thrombosis, status post IVC filter, on Eliquis. 9. Chronic venous insufficiency. PLAN: To continue with present treatment. He is already on Lasix 40 mg IV twice a day as well as metolazone 5 mg daily. We will continue to monitor his blood sugar and adjust insulin as needed. Continue amiodarone to control the heart rate and Eliquis for stroke prevention. ELIEL MOSER MD DR: LING/gia JOB#: [id number] / [id number]
[2019-07-19 03:20] VITALS: BP 109/74
[2019-07-19 07:00] VITALS: BP 125/78
[2019-07-19 07:08] LABS: CALCIUM 8.7 mg/dL (8.5-10.1); CREATININE 1.5 mg/dL (0.7-1.3); GFR 48.1; MAGNESIUM 1.9 mg/dL (1.8-2.4); POTASSIUM 3.3 mmol/L (3.5-5.1)
[2019-07-19] MEDS: INSULIN LISPRO 300 UNITS/3 ML VIAL. SQ SCH ×5 (08:00→17:00)
[2019-07-19] MEDS: LISINOPRIL 5 MG TABLET. PO SCH (09:00)
[2019-07-19] MEDS: metOLazone 2.5 MG TABLET PO SCH (09:02)
[2019-07-19] MEDS: SENNOSIDES 8.6 MG TABLET PO SCH (09:03)
[2019-07-19] MEDS: MULTIVITAMIN I-VITE TABLET. PO SCH (09:03)
[2019-07-19] MEDS: POTASSIUM CHLORIDE 20 MEQ TABLET.ER. PO SCH ×3 (09:03→21:33)
[2019-07-19] MEDS: METOPROLOL SUCC 24HR ER 50 MG TAB.ER.24H. PO SCH (09:04)
[2019-07-19] MEDS: APIXABAN 5 MG TABLET. PO SCH ×2 (09:04→21:37)
[2019-07-19 11:00] VITALS: BP 125/84
[2019-07-19] MEDS: AMIODARONE HCL 200 MG TABLET. PO SCH (12:57)
[2019-07-19] MEDS: NYSTATIN TOPICAL POWDER 15GM BOTTLE. TP SCH ×2 (12:58→21:34)
--- NOTE | 2019-07-19 13:15 | PN ---
DATE: 07/19/2019 SUBJECTIVE: The patient is sitting at the edge of the bed, eating his breakfast comfortably, in no apparent distress. On questioning him, he stated he is feeling generally much better. He, in fact, is maintaining his oxygen saturation at 97% on room air. His legs continue to be swollen and weepy. His creatinine is creeping up and the patient is concerned about that and his potassium also is trending down. PHYSICAL EXAMINATION: GENERAL: When I examined him this morning, he looked well and was clearly in no apparent respiratory distress. No pallor, jaundice, cyanosis or thyromegaly. No jugular venous distention with marked bilateral lower extremity lymphedema. VITAL SIGNS: His heart rate was 95, blood pressure was 125/78, temperature 97.8, respiratory rate 20, and oxygen saturation was 95% on room air. HEAD, EYES, EARS, NOSE AND THROAT: Showed normocephalic, atraumatic. NECK: Supple. HEART: Normal first and second sounds. No gallop or murmur. CHEST: Shows central trachea, equally reduced expansion, reduced air entry, vesicular sounds. I could not appreciate any crepitation or rhonchi. ABDOMEN: Markedly distended, soft, nontender. NEUROLOGIC: He is awake, alert, responding appropriately. All cranial nerves are intact. He moves extremities without difficulty. His intake over the last 24 hours was 1250, output was 3650. LABORATORY DATA: As of this morning, his white cell count was 5900, hemoglobin 14, hematocrit 42, MCV 93, and platelet count 269,000. His chemistry this morning showed a serum sodium 141, potassium 3.3, chloride 101, bicarbonate 32, anion gap of 8, BUN 24, creatinine 1.5, estimated GFR was 48 mL per minute, glucose 97, calcium was 8.7, and total magnesium was 1.9. His TSH was slightly elevated at 5.02. ASSESSMENT: 1. Acute on chronic congestive heart failure. 2. Nonischemic cardiomyopathy, status post automatic implantable cardioverter defibrillator. Apparently cardiac catheterization showed nonobstructive coronary artery disease. 3. Paroxysmal atrial fibrillation, status post previous cerebrovascular accident on amiodarone. 4. Hypertension, well controlled. 5. Hyperlipidemia. 6. Type 2 diabetes mellitus. 7. Morbid obesity and obstructive sleep apnea, on CPAP. 8. History of pulmonary embolism and deep vein thrombosis, status post IVC filter and currently on Eliquis. 9. Chronic venous insufficiency. PLAN: My plan is to replenish his potassium. We will consult the lymphedema therapist for lymphedema lab. ELIEL MOSER MD DR: LING/gia JOB#: [id number] / [id number]
[2019-07-19] MEDS: FUROSEMIDE 40 MG/4 ML VIAL. IVP SCH ×2 (13:45→14:00)
[2019-07-19 15:00] VITALS: BP 121/75
[2019-07-19 19:57] VITALS: BP 129/84
[2019-07-19] MEDS: traZODone 50 MG TABLET. PO PRN (21:30)
[2019-07-19] MEDS: ATORVASTATIN CALCIUM 20 MG TABLET PO SCH (21:30)
[2019-07-19] MEDS: HYDROcodone/APAP 5/325MG 1 TAB TABLET PO PRN (21:31)
[2019-07-19] MEDS: GABAPENTIN 300 MG CAPSULE. PO SCH (21:33)
[2019-07-19] MEDS: INSULIN GLARGINE SYRINGE. SQ SCH (21:39)
[2019-07-19 23:46] VITALS: BP 125/83
[2019-07-20 03:59] VITALS: BP 124/80
[2019-07-20 05:47] LABS: CALCIUM 8.8 mg/dL (8.5-10.1); CREATININE 1.5 mg/dL (0.7-1.3); GFR 48.1; POTASSIUM 3.6 mmol/L (3.5-5.1)
[2019-07-20 07:00] VITALS: BP 118/70
[2019-07-20] MEDS: INSULIN LISPRO 300 UNITS/3 ML VIAL. SQ SCH ×5 (08:00→17:50)
--- NOTE | 2019-07-20 08:03 | PN ---
DATE: 07/20/2019 SUBJECTIVE: The patient is resting, slightly propped up, sleeping comfortably on BiPAP machine, maintaining his oxygen saturation at 97%. On questioning him, he denied any complaint. Nursing staff did not voice any concerns that he had an eventful night. PHYSICAL EXAMINATION: GENERAL: When I examined him, he looked pale, but no jaundice, cyanosis or thyromegaly. No jugular venous distension. No lower limb edema. VITAL SIGNS: His heart rate was 93, blood pressure was 124/80, temperature 97.4, respiratory rate was 16, and oxygen saturation was 97% on BiPAP machine. He obviously continued to have bilateral lower extremity edema. His intake over the last 24 hours was 380, output was 2740. LABORATORY DATA: As of this morning, his serum sodium 141, potassium 3.6, chloride 101, bicarbonate 34, anion gap of 6, BUN 28, creatinine 1.5, estimated GFR was 48 mL per minute, his glucose 144, and calcium was 8.8. His white cell count was 5900, hemoglobin 14, hematocrit 42, MCV 93, and platelet count 269,000. ASSESSMENT: 1. [id number] congestive heart failure. 2. Nonischemic cardiomyopathy, status post automatic implantable defibrillator, apparently cardiac catheterization showed nonobstructive coronary artery disease. 3. Paroxysmal atrial fibrillation, status post previous cerebrovascular accident, currently on amiodarone. 4. Hypertension, well controlled. 5. Hyperlipidemia. 6. Type 2 diabetes that seems to be reasonably controlled. 7. Morbid obesity, obstructive sleep apnea, on CPAP. 8. History of pulmonary embolism and deep vein thrombosis, status post IVC filter, currently on Eliquis. 9. Chronic venous insufficiency. 10. Acute kidney injury, creatinine has risen to 1.5 mg/dL. PLAN: To continue with IV Lasix and metolazone. Continue with BiPAP. Continue to monitor his blood sugar and adjust insulin as needed. Continue with pain management. ELIEL MOSER MD DR: LING/gia JOB#: [id number] / [id number]
[2019-07-20] MEDS: SENNOSIDES 8.6 MG TABLET PO SCH (09:00)
[2019-07-20] MEDS: FUROSEMIDE 40 MG/4 ML VIAL. IVP SCH ×2 (09:02→13:10)
[2019-07-20] MEDS: MULTIVITAMIN I-VITE TABLET. PO SCH (09:02)
[2019-07-20] MEDS: LISINOPRIL 5 MG TABLET. PO SCH (09:03)
[2019-07-20] MEDS: APIXABAN 5 MG TABLET. PO SCH ×2 (09:03→21:14)
[2019-07-20] MEDS: POTASSIUM CHLORIDE 20 MEQ TABLET.ER. PO SCH ×2 (09:03→21:00)
[2019-07-20] MEDS: HYDROcodone/APAP 5/325MG 1 TAB TABLET PO PRN ×2 (09:04→21:14)
[2019-07-20] MEDS: AMIODARONE HCL 200 MG TABLET. PO SCH (09:04)
[2019-07-20] MEDS: METOPROLOL SUCC 24HR ER 50 MG TAB.ER.24H. PO SCH (09:04)
[2019-07-20] MEDS: metOLazone 2.5 MG TABLET PO SCH (09:04)
[2019-07-20] MEDS: NYSTATIN TOPICAL POWDER 15GM BOTTLE. TP SCH ×2 (09:07→21:00)
[2019-07-20 11:00] VITALS: BP 103/72
[2019-07-20] MEDS: SPIRONOLACTONE 25 MG TABLET PO SCH (13:10)
--- NOTE | 2019-07-20 13:10 | NUR ---
SS following for discharge planning. SS reviewed pt chart. Pt is from [facility], ; fax [phone]. SS contacted [facility] and spoke with Froilan. She reported that pt is a residential and rehabilitation pt from there facility. She reported that pt was discharge to home and then came back to there facility for continued rehabilitation two days after discharge. She reported that pt is able to return once medically stable for discharge. SS will continue to follow for discharge planning.
[2019-07-20] MEDS: fentaNYL PF VIAL 100 MCG/2 ML VIAL IV PRN (14:13)
[2019-07-20 15:00] VITALS: BP 149/62
--- NOTE | 2019-07-20 15:47 | PDOC ---
BROOKE DUARTE MARTIAL ARTS INSTRUCTOR 07/20/19 1547: CARDIO Progress Notes Date and Time Date of Service 07/20/2019 Time of Evaluation 1230 Subjective Subjective: No Chest Pain, Other (shortness of breath and LE edema improving ) Vitals Vitals Vital Signs Date Time Temp Pulse Resp B/P (MAP) Pulse Ox O2 Delivery O2 Flow Rate FiO2 07/20/19 11:00 97.8 91 16 103/72 (82) 98 Nasal Cannula 97.8 07/20/19 08:00 2.0 Weight Weight [ ] Input and Output Intake and Output Intake and Output 07/20/19 07:00 Intake Total 1010 ml Output Total 260 ml Balance 750 ml Intake Oral 1010 ml Output Urine Total 260 ml # Voids 1 # Bowel Movements 1 Laboratory Labs Laboratory Tests Test 07/19/19 17:11 07/19/19 20:20 07/20/19 03:50 07/20/19 07:37 Glucose (Fingerstick) 181 mg/dL (70-99) 160 mg/dL (70-99) 134 mg/dL (70-99) Sodium Level 141 mmol/L (136-145) Potassium Level 3.6 mmol/L (3.5-5.1) Chloride Level 101 mmol/L (98-107) Carbon Dioxide Level 34 mmol/L (21-32) Anion Gap 6 (6-14) Blood Urea Nitrogen 28 mg/dL (8-26) Creatinine 1.5 mg/dL (0.7-1.3) Estimated GFR (Cockcroft-Gault) 48.1 Glucose Level 144 mg/dL (70-99) Calcium Level 8.8 mg/dL (8.5-10.1) Test 07/20/19 11:35 Glucose (Fingerstick) 147 mg/dL (70-99) Physical Exam HEENT: Neck Supple W Full Motion Chest: Symmetric LUNGS: Other (basilar crackles) Heart: irregularly irregular (AFIB) Abdomen: Soft N/T, Other (obese ) Extremities: Other (2+ bilateral LE edema ) Neurology: alert, oriented, follow commands Assessment Assessment 1. Acute on chronic systolic CHF: remains overloaded 2. NICM with AICD 3. Chronic AIFB: rate controlled 4. Hypertension; controlled 5. Hyperlipidemia 6. Diabetes, II 7. H/o PE/DVT; s/p IVC filter. On Eliquis 8. Morbid obesity 9. Venous insufficiency/dermatitis/stasis lesions Recommendations 1. Continue lasix/zaroxylyn therapy. add aldactone. 2000cc FR 2. Lisinopril. Toprol for rate control. 100% AFIB burden since 01/2019, DC amiodarone. 3. Eliquis for stroke prevention 4. Continue secondary prevention measures 5. Monitor renal function, BMP this afternoon and pending his UOP will add additional lasix tonight. SILVANO MIRANDA MD 07/20/19 2012: CARDIO Progress Notes Plan Plan Patient seen and examined. Agree with above nurse practitioner note. His urine output has decreased. We will plan for aggressive diuresis but his lower extremity edema could also be related to lymphedema and venous stasis. If he has any significant decreases in renal function we may consider a right heart catheterization but otherwise supportive care for now. BROOKE DUARTE APRN Jul 20, 2019 15:47 SILVANO MIRANDA MD Jul 20, 2019 20:12
[2019-07-20 16:33] LABS: CALCIUM 8.6 mg/dL (8.5-10.1); CREATININE 1.4 mg/dL (0.7-1.3); GFR 52.1; MAGNESIUM 1.9 mg/dL (1.8-2.4)
[2019-07-20 16:36] LABS: POTASSIUM 4.2 mmol/L (3.5-5.1)
[2019-07-20 19:21] VITALS: BP 108/73
--- NOTE | 2019-07-20 20:00 | NUR ---
Spoke with cardiology VAMP WETTER and an additional dose of 40 IV lasix was asked to be administered. Spoke with pt about poor urinary output and pt states not using the urinal much today r/t multiple bowel movements. Dw pt about giving lasix, pt is refusing, stating "I put out a ton today and want sleep." VSS, will continue to monitor for status changes.
[2019-07-20] MEDS: traZODone 50 MG TABLET. PO PRN (21:13)
[2019-07-20] MEDS: GABAPENTIN 300 MG CAPSULE. PO SCH (21:14)
[2019-07-20] MEDS: ATORVASTATIN CALCIUM 20 MG TABLET PO SCH (21:14)
[2019-07-20] MEDS: INSULIN GLARGINE SYRINGE. SQ SCH (21:15)
[2019-07-20 23:42] VITALS: BP 114/72
[2019-07-21 03:59] VITALS: BP 126/77
[2019-07-21 06:21] LABS: CALCIUM 8.5 mg/dL (8.5-10.1); CREATININE 1.4 mg/dL (0.7-1.3); GFR 52.1; MAGNESIUM 1.9 mg/dL (1.8-2.4); POTASSIUM 4.2 mmol/L (3.5-5.1)
[2019-07-21 07:00] VITALS: BP 128/81
[2019-07-21] MEDS: INSULIN LISPRO 300 UNITS/3 ML VIAL. SQ SCH ×5 (08:00→17:00)
[2019-07-21] MEDS: MULTIVITAMIN I-VITE TABLET. PO SCH (08:56)
[2019-07-21] MEDS: HYDROcodone/APAP 5/325MG 1 TAB TABLET PO PRN ×2 (08:56→21:18)
[2019-07-21] MEDS: METOPROLOL SUCC 24HR ER 50 MG TAB.ER.24H. PO SCH (08:56)
[2019-07-21] MEDS: LISINOPRIL 5 MG TABLET. PO SCH (08:56)
[2019-07-21] MEDS: FUROSEMIDE 40 MG/4 ML VIAL. IVP SCH ×2 (08:57→15:40)
[2019-07-21] MEDS: APIXABAN 5 MG TABLET. PO SCH ×2 (08:57→21:15)
[2019-07-21] MEDS: SPIRONOLACTONE 25 MG TABLET PO SCH (08:57)
[2019-07-21] MEDS: metOLazone 2.5 MG TABLET PO SCH (08:57)
[2019-07-21] MEDS: POTASSIUM CHLORIDE 20 MEQ TABLET.ER. PO SCH ×2 (08:57→21:15)
[2019-07-21] MEDS: NYSTATIN TOPICAL POWDER 15GM BOTTLE. TP SCH ×2 (08:58→21:00)
[2019-07-21] MEDS: SENNOSIDES 8.6 MG TABLET PO SCH (09:00)
--- NOTE | 2019-07-21 09:08 | PN ---
DATE: 07/21/2019 SUBJECTIVE: The patient is sitting at the edge of the bed, complaining of severe pain in his left groin area, which is very macerated and markedly erythematous. He continues to have marked bilateral lower extremity edema. He continues to ooze. PHYSICAL EXAMINATION: GENERAL: When I examined him, he looked well and was clearly in no apparent respiratory distress. No pallor, jaundice, cyanosis or thyromegaly. No jugular venous distention, but marked generalized anasarca. VITAL SIGNS: Her heart rate was 93, blood pressure 126/77, temperature 98, respiratory rate was 16, and oxygen saturation was 95% on room air. HEAD, EYES, EARS, NOSE AND THROAT: Normocephalic, atraumatic. NECK: Supple. HEART: Showed normal first and second heart sounds. No gallop, rub or murmur. CHEST: Clear to auscultation. No crepitation or rhonchi. ABDOMEN: Markedly distended, soft, nontender. Has marked erythema and maceration of his particularly left groin area. There is no tenderness. No guarding or rigidity. Bowel sounds normal. NEUROLOGIC: He is awake, alert, responding appropriately. All cranial nerves are intact. He moves extremities without difficulty. He has marked bilateral chronic venous stasis and bilateral lower limb edema. His intake over the last 24 hours was 1000, output was only 260. LABORATORY DATA: Most recent lab work showed a white cell count 5900, hemoglobin 14, hematocrit 42, MCV 93, and platelet count of 169,000. Serum sodium was 141, potassium 4.2, chloride 101, bicarbonate 32, anion gap of 8, BUN 27, creatinine 1.4, estimated GFR was 118 mL per minute. His calcium and magnesium were normal. His free T4 is 1.2 indicating that he has compensated hypothyroidism. ASSESSMENT: 1. In summary, this is a 59-year-old male patient with acute on chronic congestive heart failure. 2. Nonischemic cardiomyopathy, status post automatic implantable defibrillator. Apparently cardiac catheterization showed nonobstructive coronary artery disease. 3. Paroxysmal atrial fibrillation, status post previous cerebrovascular accident, currently on amiodarone. 4. Hypertension, well controlled. 5. Hyperlipidemia. 6. Type 2 diabetes, seems to be reasonably controlled. 7. Morbid obesity, obstructive sleep apnea, on CPAP. 8. History of pulmonary embolism and deep vein thrombosis, status post IVC filter, currently on Eliquis. 9. Chronic venous insufficiency. 10. Acute kidney injury. Creatinine is actually stable around 1.4 mg/dL. 11. Severe intertriginous candidiasis involving particularly left groin area. PLAN: To continue with IV Lasix and metolazone as well as spironolactone. Continue with BiPAP machine, continue to monitor his blood sugar and adjust insulin as needed. Continue with pain management. I will discuss the finding with the Infectious Disease to see whether other options available to treat this severe intertriginous candidiasis with marked maceration and erythema involving the left groin area. ELIEL MOSER MD DR: LING/gia JOB#: [id number] / [id number]
[2019-07-21 11:00] VITALS: BP 115/61
[2019-07-21] MEDS: FLUCONAZOLE 100 MG TABLET. PO SCH (13:08)
--- NOTE | 2019-07-21 14:00 | NUR ---
SS following up with discharge planning. SS phoned and faxed clinical updates to [facility], ; fax [phone]. SS will continue to follow for discharge planning.
[2019-07-21] MEDS ORDERED: fentaNYL PF VIAL 100 MCG/2 ML VIAL IVP ONE (14:15)
--- NOTE | 2019-07-21 14:42 | PDOC ---
PETER BURNETT CERTIFICATION AND SELECTION SPECIALIST 07/21/19 1442: CARDIO Progress Notes Date and Time Date of Service 07/21/19 Time of Evaluation 1410 Subjective Subjective: No Chest Pain, Other (C/o right sided pain with wound) Vitals Vitals Vital Signs Date Time Temp Pulse Resp B/P (MAP) Pulse Ox O2 Delivery O2 Flow Rate FiO2 07/21/19 11:00 97.4 84 22 115/61 (79) 94 Room Air 97.4 07/21/19 08:00 2.0 Weight Weight [ ] Input and Output Intake and Output Intake and Output 07/21/19 07:00 Intake Total 1440 ml Output Total 1200 ml Balance 240 ml Intake Oral 1440 ml Output Urine Total 1200 ml # Voids 2 # Bowel Movements 2 Laboratory Labs Laboratory Tests Test 07/20/19 16:15 07/20/19 16:47 07/20/19 20:52 07/21/19 04:50 Sodium Level 134 mmol/L (136-145) 141 mmol/L (136-145) Potassium Level 4.2 mmol/L (3.5-5.1) 4.2 mmol/L (3.5-5.1) Chloride Level 99 mmol/L (98-107) 101 mmol/L (98-107) Carbon Dioxide Level 30 mmol/L (21-32) 32 mmol/L (21-32) Anion Gap 5 (6-14) 8 (6-14) Blood Urea Nitrogen 27 mg/dL (8-26) 27 mg/dL (8-26) Creatinine 1.4 mg/dL (0.7-1.3) 1.4 mg/dL (0.7-1.3) Estimated GFR (Cockcroft-Gault) 52.1 52.1 Glucose Level 167 mg/dL (70-99) 118 mg/dL (70-99) Calcium Level 8.6 mg/dL (8.5-10.1) 8.5 mg/dL (8.5-10.1) Magnesium Level 1.9 mg/dL (1.8-2.4) 1.9 mg/dL (1.8-2.4) Glucose (Fingerstick) 166 mg/dL (70-99) 185 mg/dL (70-99) Free Thyroxine 1.20 ng/dL (0.76-1.46) Thyroxine (T4) 8.0 ug/dL (4.5-12.0) Total Triiodothyronine 92 ng/dL (71-180) Test 07/21/19 08:08 07/21/19 11:48 Glucose (Fingerstick) 121 mg/dL (70-99) 127 mg/dL (70-99) Physical Exam HEENT: Neck Supple W Full Motion Chest: Symmetric LUNGS: Other (basilar crackles) Heart: irregularly irregular (AFIB) Abdomen: Soft N/T, Other (obese ) Extremities: Other (2+ bilateral LE edema, weepy bilateral LE) Neurology: alert, oriented, follow commands Assessment Assessment 1. Acute on chronic systolic CHF: remains overloaded. UOP not completely accurate as he is not always able to use urinal for measuring 2. NICM with AICD ([employer]) 3. Chronic AIFB: rate controlled 4. Hypertension; controlled 5. Hyperlipidemia 6. Diabetes, II 7. H/o PE/DVT; s/p IVC filter. On Eliquis 8. Morbid obesity 9. Venous insufficiency; LE weepy 10. CKD; Cr stable with diuresis Recommendations Ongoing diuresis with zaroxylyn and aldactone. Will try Bumex 2000cc FR, 2Gm Na diet Accurate I and O as best as possible Metoprolol for rate control Eliquis for stroke prophylaxis Secondary prevention measures Consider for [facility] SILVANO MIRANDA MD 07/21/19 2355: PETER BURNETT APRN Jul 21, 2019 14:42 SILVANO MIRANDA MD Jul 21, 2019 23:55
[2019-07-21 15:00] VITALS: BP 133/92
[2019-07-21] MEDS: BUMETANIDE 1 MG/4 ML VIAL. IV SCH (17:54)
[2019-07-21 19:00] VITALS: BP 113/73
[2019-07-21] MEDS: ATORVASTATIN CALCIUM 20 MG TABLET PO SCH (21:15)
[2019-07-21] MEDS: GABAPENTIN 300 MG CAPSULE. PO SCH (21:15)
[2019-07-21] MEDS: INSULIN GLARGINE SYRINGE. SQ SCH (21:16)
--- NOTE | 2019-07-21 21:38 | NUR ---
Requested to do wound care to patients pannus areas and legs. Pt got aggressive stating your not touching anything. Told patient of importance of doing wound care for healing purposes. Pt Refused. Pt also refused a CHG bath. Will continue to monitor.
[2019-07-21 23:34] VITALS: BP 120/68
[2019-07-22 03:15] VITALS: BP 128/58
[2019-07-22 06:22] LABS: HEMATOCRIT 42.1 % (39.0-53.0); HEMOGLOBIN 13.7 g/dL (13.0-17.5); RED BLOOD COUNT 4.52 x10^6/uL (4.30-5.70); RED CELL DISTRIBUTION WIDTH 15.9 % (11.5-14.5); WHITE BLOOD COUNT 6.9 x10^3/uL (4.0-11.0)
[2019-07-22 06:41] LABS: ALBUMIN/GLOBULIN RATIO 0.9 (1.0-1.7); CALCIUM 8.8 mg/dL (8.5-10.1); CREATININE 1.5 mg/dL (0.7-1.3); GFR 48.1; POTASSIUM 4.2 mmol/L (3.5-5.1); TOTAL BILIRUBIN 0.7 mg/dL (0.2-1.0); TOTAL PROTEIN 6.3 g/dL (6.4-8.2)
[2019-07-22 07:13] VITALS: BP 124/77
[2019-07-22] MEDS: INSULIN LISPRO 300 UNITS/3 ML VIAL. SQ SCH ×5 (08:00→18:30)
[2019-07-22] MEDS: MULTIVITAMIN I-VITE TABLET. PO SCH (08:41)
[2019-07-22] MEDS: LISINOPRIL 5 MG TABLET. PO SCH (08:42)
[2019-07-22] MEDS: METOPROLOL SUCC 24HR ER 50 MG TAB.ER.24H. PO SCH (08:42)
[2019-07-22] MEDS: metOLazone 2.5 MG TABLET PO SCH (08:42)
[2019-07-22] MEDS: BUMETANIDE 1 MG/4 ML VIAL. IV SCH ×2 (08:43→15:31)
[2019-07-22] MEDS: SPIRONOLACTONE 25 MG TABLET PO SCH (08:43)
[2019-07-22] MEDS: APIXABAN 5 MG TABLET. PO SCH ×2 (08:43→20:33)
[2019-07-22] MEDS: POTASSIUM CHLORIDE 20 MEQ TABLET.ER. PO SCH ×2 (08:43→20:33)
[2019-07-22] MEDS: NYSTATIN TOPICAL POWDER 15GM BOTTLE. TP SCH ×2 (08:44→20:35)
[2019-07-22] MEDS: FLUCONAZOLE 100 MG TABLET. PO SCH (08:44)
[2019-07-22] MEDS: HYDROcodone/APAP 5/325MG 1 TAB TABLET PO PRN ×2 (08:45→20:34)
[2019-07-22] MEDS: SENNOSIDES 8.6 MG TABLET PO SCH (08:50)
--- NOTE | 2019-07-22 08:52 | PN ---
DATE: 07/22/2019 SUBJECTIVE: The patient is resting slightly propped up in bed, sleeping comfortably with BiPAP machine. Nursing staff stated that he was very aggressive, uncooperative and he did not allow her to change the dressing. PHYSICAL EXAMINATION: GENERAL: When I saw him this morning, he was somewhat pale, but no jaundice, cyanosis or thyromegaly. No jugular venous distention, but marked bilateral lower extremity edema. VITAL SIGNS: His heart rate was 78, blood pressure was 128/58, temperature 97.6, respiratory rate was 18 and oxygen saturation was 95% on BiPAP machine. HEAD, EYES, EARS, NOSE AND THROAT: Normocephalic, atraumatic. NECK: Supple. HEART: Showed normal first and second heart sounds. No gallop or murmur. CHEST: Clear to auscultation. No crepitation or rhonchi. ABDOMEN: Distended, soft, nontender. NEUROLOGIC: He was sleepy, but arousable. All cranial nerves are intact. He moves extremities without difficulty. He has severe intertriginous candidiasis involving his left groin and perianal area. His intake over the last 24 hours was 1440, output was 1200. LABORATORY DATA: As of this morning, his white cell count was 6900, hemoglobin 13.7, hematocrit 42, MCV 93, and platelet count of 171,000. His chemistry showed a serum sodium 141, potassium 4.2, chloride 100, bicarbonate 34, anion gap of 7, BUN 25, creatinine 1.5, estimated GFR was 48 mL per minute, his glucose 122, calcium was 8.8. Total bilirubin, AST, ALT, alkaline phosphatase were normal. Total protein 6.3, albumin was 3 g/dL, although his TSH slightly elevated. His total T4, free T4 and total T3 are all within normal range, indicating that he has compensated hypothyroidism. ASSESSMENT: 1. Acute on chronic systolic congestive heart failure. 2. Nonischemic cardiomyopathy, status post automatic implantable cardioverter defibrillator, apparently cardiac catheterization showed nonobstructive coronary artery disease. 3. Paroxysmal atrial fibrillation, status post previous cerebrovascular accident, currently on amiodarone. 4. Hypertension well controlled. 5. Hyperlipidemia. 6. Type 2 diabetes mellitus seems to be reasonably controlled. 7. Morbid obesity, obstructive sleep apnea, on CPAP. 8. History of pulmonary embolism and deep vein thrombosis, status post IVC filter, currently on Eliquis. 9. Chronic venous insufficiency. 10. Acute kidney injury with creatinine that has been stable around 1.4 mg/dL. 11. Severe intertriginous candidiasis involving particularly left groin area, treated with nystatin powder, seemed to be a little bit more dry today. PLAN: Plan is to obviously continue with nystatin powder and fluconazole orally. Continue with Bumex 1 mg IV twice a day together with spironolactone and metolazone. Continue with fluid restriction. Continue potassium supplementation. Continue with pain management. Continue to monitor his blood sugar and adjust insulin as needed. ELIEL MOSER MD DR: LING/gia JOB#: [id number] / [id number]
[2019-07-22 10:23] VITALS: BP 101/65
[2019-07-22 14:24] VITALS: BP 104/77
[2019-07-22 18:19] VITALS: BP 149/67
[2019-07-22] MEDS: ATORVASTATIN CALCIUM 20 MG TABLET PO SCH (20:33)
[2019-07-22] MEDS: GABAPENTIN 300 MG CAPSULE. PO SCH (20:33)
[2019-07-22] MEDS: INSULIN GLARGINE SYRINGE. SQ SCH (20:35)
[2019-07-22 22:46] VITALS: BP 151/72
[2019-07-23 02:57] VITALS: BP 137/81
[2019-07-23 06:25] VITALS: BP 131/82
[2019-07-23 08:00] LABS: CALCIUM 8.9 mg/dL (8.5-10.1); CREATININE 1.4 mg/dL (0.7-1.3); GFR 52.1; POTASSIUM 4.2 mmol/L (3.5-5.1)
[2019-07-23] MEDS: INSULIN LISPRO 300 UNITS/3 ML VIAL. SQ SCH ×5 (08:00→17:48)
--- NOTE | 2019-07-23 08:57 | PN ---
DATE: 07/23/2019 SUBJECTIVE: The patient is resting slightly propped up in bed, sleeping comfortably on his BiPAP machine. Nursing staff said that his left groin area continued to be macerated and oozing despite treatment with nystatin powder and Diflucan. On questioning this morning, stated that he had generally a good night sleep. PHYSICAL EXAMINATION: GENERAL: When I examined him, he looked well and was clearly in no apparent respiratory distress. No pallor, jaundice, cyanosis or thyromegaly. No jugular venous distension. No lower limb edema. VITAL SIGNS: His heart rate was 89, blood pressure was 131/82, temperature was 98, respiratory rate was 16 and oxygen saturation was 96% on 2 L of oxygen. HEAD, EYES, EARS, NOSE AND THROAT: Normocephalic, atraumatic. NECK: Supple. HEART: Normal first and second heart sounds. No gallop or murmur. CHEST: Clear to auscultation. No crepitation or rhonchi. ABDOMEN: Markedly distended, soft, with marked maceration mostly and erythema on the left groin area. No tenderness. No guarding or rigidity. No organomegaly. All hernial orifices are intact. Bowel sounds normal. NEUROLOGICAL: He is awake, alert, responding appropriately. All cranial nerves intact. EXTREMITIES: He moves extremities without difficulty. He continues to have marked bilateral lower extremity edema. His intake over the last 24 hours was 1880, output was 1550. LABORATORY DATA: His lab work as of yesterday showed a white cell count of 6900, hemoglobin 14, hematocrit 42, MCV 93 and platelet count 271,000. His today's labs are still pending at the time of this dictation. ASSESSMENT: 1. Acute on chronic systolic congestive heart failure. 2. Nonischemic cardiomyopathy, status post automatic implantable cardioverter-defibrillator. Apparently, cardiac catheterization showed nonobstructive coronary artery disease. 3. Paroxysmal atrial fibrillation, status post previous cerebrovascular accident, currently on amiodarone. 4. Hypertension, seems to be well controlled. 5. Hyperlipidemia. 6. Type 2 diabetes, poorly controlled. His hemoglobin A1c was 10%. 7. Morbid obesity, obstructive sleep apnea, on CPAP. 8. History of pulmonary embolism and deep vein thrombosis, status post inferior vena cava filter, currently on Eliquis. 9. Chronic venous insufficiency. 10. Acute kidney injury. However, his creatinine has been stable around 1.4 mg/dL. 11. Severe intertrigo candidiasis involving particularly the left groin area, treated with nystatin powder and oral Diflucan. PLAN: Obviously to continue with nystatin powder and fluconazole. Continue with Bumex 1 mg IV twice a day together with spironolactone and metolazone. Continue with fluid restriction. Continue potassium supplement. Continue pain management. Continue to monitor his blood sugar and adjust insulin as needed. Continue with physical and occupational therapy. ELIEL MOSER MD DR: LING/gia JOB#: [id number] / [id number]
[2019-07-23] MEDS: BUMETANIDE 1 MG/4 ML VIAL. IV SCH ×2 (09:25→14:53)
[2019-07-23] MEDS: metOLazone 2.5 MG TABLET PO SCH (09:25)
[2019-07-23] MEDS: FLUCONAZOLE 100 MG TABLET. PO SCH (09:26)
[2019-07-23] MEDS: SPIRONOLACTONE 25 MG TABLET PO SCH (09:26)
[2019-07-23] MEDS: POTASSIUM CHLORIDE 20 MEQ TABLET.ER. PO SCH ×2 (09:26→21:22)
[2019-07-23] MEDS: METOPROLOL SUCC 24HR ER 50 MG TAB.ER.24H. PO SCH (09:26)
[2019-07-23] MEDS: MULTIVITAMIN I-VITE TABLET. PO SCH (09:26)
[2019-07-23] MEDS: APIXABAN 5 MG TABLET. PO SCH ×2 (09:26→21:23)
[2019-07-23] MEDS: LISINOPRIL 5 MG TABLET. PO SCH (09:26)
[2019-07-23] MEDS: SENNOSIDES 8.6 MG TABLET PO SCH (09:27)
[2019-07-23] MEDS: HYDROcodone/APAP 5/325MG 1 TAB TABLET PO PRN ×3 (09:28→21:23)
[2019-07-23] MEDS: NYSTATIN TOPICAL POWDER 15GM BOTTLE. TP SCH ×2 (09:32→21:00)
[2019-07-23 10:14] VITALS: BP 148/79
[2019-07-23 14:25] VITALS: BP 99/79
[2019-07-23] MEDS: fentaNYL PF VIAL 100 MCG/2 ML VIAL IV PRN (15:02)
[2019-07-23 19:20] VITALS: BP 93/66
[2019-07-23] MEDS: GABAPENTIN 300 MG CAPSULE. PO SCH (21:22)
[2019-07-23] MEDS: traZODone 50 MG TABLET. PO PRN (21:22)
[2019-07-23] MEDS: ATORVASTATIN CALCIUM 20 MG TABLET PO SCH (21:23)
[2019-07-23] MEDS: INSULIN GLARGINE SYRINGE. SQ SCH (21:24)
[2019-07-23 23:00] VITALS: BP 118/75
[2019-07-24 05:44] LABS: HEMOGLOBIN 13.1 g/dL (13.0-17.5); RED BLOOD COUNT 4.41 x10^6/uL (4.30-5.70); WHITE BLOOD COUNT 6.7 x10^3/uL (4.0-11.0)
[2019-07-24 06:04] LABS: ALBUMIN 2.7 g/dL (3.4-5.0); ALBUMIN/GLOBULIN RATIO 0.7 (1.0-1.7); CALCIUM 8.7 mg/dL (8.5-10.1); CREATININE 1.4 mg/dL (0.7-1.3); GFR 52.1; POTASSIUM 4.6 mmol/L (3.5-5.1); TOTAL BILIRUBIN 0.6 mg/dL (0.2-1.0); TOTAL PROTEIN 6.4 g/dL (6.4-8.2)
[2019-07-24 07:00] VITALS: BP 103/76
--- NOTE | 2019-07-24 07:55 | PN ---
DATE: 07/24/2019 SUBJECTIVE: The patient is sitting on the edge of the bed comfortably in no apparent distress. On questioning him, he denied any complaint, in particular denied any pain in his left groin area and has generally a good night sleep. PHYSICAL EXAMINATION: GENERAL: When I examined him, he looked well and was clearly in no apparent respiratory distress. No pallor, jaundice, or cyanosis. No thyromegaly, jugular venous distention with marked bilateral lower extremity edema. VITAL SIGNS: His heart rate was 83, blood pressure was 118/75, temperature 98.2, respiratory rate was 22, and oxygen saturation was 95%. HEAD, EYES, EARS, NOSE AND THROAT: Normocephalic, atraumatic. NECK: Supple. HEART: Normal first and second heart sounds. No gallop, rub, or murmur. CHEST: Clear to auscultation. No crepitation or rhonchi. ABDOMEN: Markedly distended, soft, and nontender. Has marked intertriginous candidiasis with marked skin laceration and erythema mostly involving the left groin area. NEUROLOGIC: He is awake, alert, responding appropriately. All cranial nerves are intact. He moves extremities without difficulty. He ambulates with a walker. His intake over the last 24 hours was 1360, output was 1200. LABORATORY DATA: As of this morning, his white cell count of 6700; hemoglobin 13; hematocrit 41; MCV 93; and platelet count 284,000. His chemistry showed a serum sodium 139, potassium 4.6, chloride 102, bicarbonate 35, anion gap of 2, BUN 26, creatinine 1.4, estimated GFR was 52 mL per minute, glucose 142, and calcium was 8.7. Total bilirubin, AST, ALT, alkaline phosphatase were normal. Total protein was 6.4, albumin was 2.7. ASSESSMENT: 1. Acute on chronic systolic congestive heart failure, seemed to be well compensated. 2. Nonischemic cardiomyopathy, status post automatic implantable cardioverter defibrillator. Apparently cardiac catheterization showed nonobstructive coronary artery disease. 3. Paroxysmal atrial fibrillation, status post previous cerebrovascular accident, currently on amiodarone. 4. Hypertension. This seems to be well controlled. 5. Hyperlipidemia. 6. Type 2 diabetes, poorly controlled. His hemoglobin A1c was 10%. 7. Morbid obesity, obstructive sleep apnea, on CPAP. 8. History of pulmonary embolism and deep vein thrombosis. He is status post inferior vena cava filter, currently on Eliquis. 9. Chronic venous insufficiency. 10. Acute kidney injury; however, his creatinine has been stable around 1.4 mg/dL. 11. Severe intertriginous candidiasis involving particularly the left groin area, currently on nystatin powder and oral Diflucan. PLAN: Continue with nystatin powder and fluconazole. Continue with Bumex 1 mg IV twice a day. Continue with spironolactone and metolazone. Continue with fluid restriction. Continue with pain management. Continue with physical and occupational therapy. ELIEL MOSER MD DR: LING/gia JOB#: [id number] / [id number]
[2019-07-24] MEDS: INSULIN LISPRO 300 UNITS/3 ML VIAL. SQ SCH ×5 (08:00→17:56)
[2019-07-24] MEDS: MULTIVITAMIN I-VITE TABLET. PO SCH (08:39)
[2019-07-24] MEDS: SPIRONOLACTONE 25 MG TABLET PO SCH (08:40)
[2019-07-24] MEDS: APIXABAN 5 MG TABLET. PO SCH ×2 (08:46→20:29)
[2019-07-24] MEDS: FLUCONAZOLE 100 MG TABLET. PO SCH (08:46)
[2019-07-24] MEDS: HYDROcodone/APAP 5/325MG 1 TAB TABLET PO PRN ×3 (08:47→20:30)
[2019-07-24] MEDS: METOPROLOL SUCC 24HR ER 50 MG TAB.ER.24H. PO SCH (08:47)
[2019-07-24] MEDS: SENNOSIDES 8.6 MG TABLET PO SCH (08:48)
[2019-07-24] MEDS: POTASSIUM CHLORIDE 20 MEQ TABLET.ER. PO SCH ×2 (08:48→20:29)
[2019-07-24] MEDS: LISINOPRIL 5 MG TABLET. PO SCH (10:58)
[2019-07-24] MEDS: metOLazone 2.5 MG TABLET PO SCH (10:58)
[2019-07-24 11:00] VITALS: BP 120/74
[2019-07-24] MEDS: BUMETANIDE 1 MG/4 ML VIAL. IV SCH ×2 (11:00→15:50)
[2019-07-24] MEDS: NYSTATIN TOPICAL POWDER 15GM BOTTLE. TP SCH ×2 (11:05→21:00)
[2019-07-24 15:00] VITALS: BP 139/83
--- NOTE | 2019-07-24 15:32 | NUR ---
SS following up with discharge planning. Pt is a resident at [facility], ; fax [phone], and is able to return when medically stable for discharge. SS will continue to follow for discharge planning.
[2019-07-24 15:49] VITALS: BP 139/83
[2019-07-24 19:10] VITALS: BP 103/64
[2019-07-24] MEDS: GABAPENTIN 300 MG CAPSULE. PO SCH (20:29)
[2019-07-24] MEDS: ATORVASTATIN CALCIUM 20 MG TABLET PO SCH (20:29)
[2019-07-24] MEDS: traZODone 50 MG TABLET. PO PRN (20:29)
[2019-07-24] MEDS: INSULIN GLARGINE SYRINGE. SQ SCH (20:34)
[2019-07-24 23:20] VITALS: BP 104/70
[2019-07-25 03:40] VITALS: BP 117/78
--- NOTE | 2019-07-25 07:58 | PN ---
DATE: 07/25/2019 SUBJECTIVE: The patient is resting in his recliner, in no apparent distress. He has according to him a good night sleep, continued to have pain particularly in his left groin area, has worked with physical therapy and apparently has been able to walk with a walker. OBJECTIVE: GENERAL: When I examined him, he looked well and was clearly in no apparent respiratory distress, pale but no jaundice, cyanosis or thyromegaly. No jugular venous distension. No lower limb edema. VITAL SIGNS: His heart rate was 79, blood pressure was 117/78, temperature 97.8, respiratory rate 20 and oxygen saturation was 97%. NEUROLOGIC: He is awake and alert, responding appropriately. He moves extremities without difficulty. He has continued to have erythema and maceration of the left groin area, although the skin seems to be dry at the edges. His intake over the last 24 hours was 1450 and output was 300, and his blood sugar seems to be reasonably controlled. LABORATORY DATA: His lab work as of yesterday showed a serum sodium 139, potassium 4.6, chloride 102, bicarbonate 35, anion gap of 2, BUN 26 and creatinine 1.4. Estimated GFR was 52 mL per minute, his glucose 142 and calcium was 8.7. Total bilirubin, AST, ALT and alkaline phosphatase were normal. Total protein 6.4, albumin 2.7. His most recent white cell count was 6700, hemoglobin 13, hematocrit 41, MCV 93 and platelet count of 184,000. ASSESSMENT: 1. Acute on chronic systolic congestive heart failure, seems to be well compensated. 2. Nonischemic cardiomyopathy status post automatic implantable cardioverter defibrillator. Apparently, cardiac catheterization showed nonobstructive coronary artery disease. 3. Paroxysmal atrial fibrillation status post previous cerebrovascular accident, currently on amiodarone. 4. Hypertension. This seems to be well controlled. 5. Hyperlipidemia. 6. Type 2 diabetes mellitus, seems to be better controlled now, although his hemoglobin A1c was 10%. 7. Morbid obesity, obstructive sleep apnea, on CPAP. 8. History of pulmonary embolism and deep vein thrombosis. He is status post inferior vena cava filter. He is currently only on Eliquis. 9. Chronic venous insufficiency. 10. Acute kidney injury; however, his creatinine has been stable around 1.4 mg/dL. 11. Severe intertriginous candidiasis involving particularly left groin area, currently on nystatin powder and oral Diflucan. PLAN: Continue with nystatin powder and Diflucan. Continue with IV Bumex. Continue with spironolactone and metolazone. Continue with fluid restriction. Continue pain management. Continue with physical and occupational therapy. ELIEL MOSER MD DR: LING/gia JOB#: [id number] / [id number]
[2019-07-25] MEDS: INSULIN LISPRO 300 UNITS/3 ML VIAL. SQ SCH ×5 (08:00→17:00)
[2019-07-25] MEDS: APIXABAN 5 MG TABLET. PO SCH ×2 (08:20→19:59)
[2019-07-25] MEDS: HYDROcodone/APAP 5/325MG 1 TAB TABLET PO PRN ×3 (08:22→20:03)
[2019-07-25] MEDS: FLUCONAZOLE 100 MG TABLET. PO SCH (08:22)
[2019-07-25] MEDS: METOPROLOL SUCC 24HR ER 50 MG TAB.ER.24H. PO SCH (08:23)
[2019-07-25] MEDS: SPIRONOLACTONE 25 MG TABLET PO SCH (08:24)
[2019-07-25] MEDS: MULTIVITAMIN I-VITE TABLET. PO SCH (08:24)
[2019-07-25] MEDS: POTASSIUM CHLORIDE 20 MEQ TABLET.ER. PO SCH ×2 (08:24→19:59)
[2019-07-25] MEDS: SENNOSIDES 8.6 MG TABLET PO SCH (08:34)
--- NOTE | 2019-07-25 10:16 | NUR ---
Wound Care Wound care follow up for BLE wounds. Pt has BLE cellulitis with stasis ulcers. Cleansed wounds and dressed RLE with aquacel ag, medihoney, ABD and kerlix, covered by Size G medigrip. Dressed LLE with Aquacel ag, chux, and kerlix. When medigrip placed on LLE pt c/o numbness so stocking removed and discussed findings with Dr Bajwa who ordered arterial doppler to assess arterial flow to BLE. Pt has widespread yeast rash under pannus and in groin, cleansed and applied nystatin powder with pillowcase to absorb drainage. No other wounds noted. will continue to follow for changes and recommend follow up in [facility] after discharge.
[2019-07-25 11:00] VITALS: BP 110/70
[2019-07-25] MEDS: metOLazone 2.5 MG TABLET PO SCH (11:10)
[2019-07-25] MEDS: LISINOPRIL 5 MG TABLET. PO SCH (11:10)
[2019-07-25] MEDS: BUMETANIDE 1 MG/4 ML VIAL. IV SCH ×2 (11:11→15:14)
[2019-07-25] MEDS: NYSTATIN TOPICAL POWDER 15GM BOTTLE. TP SCH ×2 (11:14→20:14)
[2019-07-25] MEDS: ANTI-COAG MONITOR BY PHARMACY. MC PRN (12:44)
--- NOTE | 2019-07-25 13:44 | RAD ---
EXAM: Bilateral lower extremity arterial Doppler sonogram. HISTORY: Chronic wounds. TECHNIQUE: Esquivel scale and color Doppler sonographic imaging of the lower extremity arteries with spectral waveform analysis was performed. COMPARISON: None. FINDINGS: The bilateral peroneal arteries are not seen, most likely obscured due to calf soft tissue edema or small caliber. There are normal peak systolic velocities throughout the remainder of the lower extremity arteries. There are triphasic waveforms throughout the lower extremity arteries, with exception of biphasic waveforms within the right deep femoral and popliteal artery. IMPRESSION: 1. Nonvisualization of the peroneal arteries. 2. No evidence of significant stenosis or occlusion involving the remainder of the lower extremity arteries. Electronically signed by: Teagan Moy MD (07/25/2019 1:41 PM) [place] [id number]
--- NOTE | 2019-07-25 14:50 | NUR ---
SS following up with discharge planning. SS discussed with Dr. Bajwa. SS phoned and faxed referral to [facility], ; fax [phone], per request. Pt accepted at [facility] pending insurance authorization. SS will await insurance determination and will proceed accordingly with discharge planning.
[2019-07-25 14:55] VITALS: BP 100/71
--- NOTE | 2019-07-25 15:57 | PDOC ---
CARDIO Progress Notes Date and Time Date of Service 07/25/2019 Time of Evaluation 1530 Subjective Subjective: No Chest Pain, No shortness of breath, No Palpitations Vitals Vitals Vital Signs Date Time Temp Pulse Resp B/P (MAP) Pulse Ox O2 Delivery O2 Flow Rate FiO2 07/25/19 15:14 Room Air 07/25/19 14:55 97.5 84 20 100/71 (81) 98 97.5 Weight Weight [ ] Input and Output Intake and Output Intake and Output 07/25/19 07:00 Intake Total 1110 ml Output Total 1125 ml Balance -15 ml Intake Oral 1110 ml Output Urine Total 1125 ml Laboratory Labs Laboratory Tests Test 07/24/19 17:06 07/24/19 19:32 07/25/19 08:02 07/25/19 12:23 Glucose (Fingerstick) 181 mg/dL (70-99) 145 mg/dL (70-99) 131 mg/dL (70-99) 129 mg/dL (70-99) Physical Exam HEENT: Neck Supple W Full Motion Chest: Symmetric LUNGS: Other (basilar crackles) Heart: irregularly irregular (AFIB) Abdomen: Soft N/T, Other (obese ) Extremities: Other (2+ bilateral LE edema, weepy bilateral LE) Neurology: alert, oriented, follow commands Assessment Assessment 1. Acute on chronic systolic CHF: better compensated 2. NICM with AICD 3. Chronic AIFB: rate controlled 4. Hypertension; controlled 5. Hyperlipidemia 6. Diabetes, II 7. H/o PE/DVT; s/p IVC filter. On Eliquis 8. Morbid obesity 9. Venous insufficiency/dermatitis/stasis lesions Recommendations 1. Continue bumex/zaroxylyn/aldactone. Cr stable at 1.4. good UOP. 170 Kg possibly his baseline. 2000cc FR 2. Lisinopril. Toprol for rate control. 100% AFIB burden since 01/2019, No further amiodarone 3. Eliquis for stroke prevention 4. Continue secondary prevention measures 5. SNU vs LTAC. Wound care. BROOKE DUARTE APRN Jul 25, 2019 15:57
[2019-07-25 19:00] VITALS: BP 112/74
[2019-07-25] MEDS: ATORVASTATIN CALCIUM 20 MG TABLET PO SCH (19:58)
[2019-07-25] MEDS: GABAPENTIN 300 MG CAPSULE. PO SCH (19:59)
[2019-07-25] MEDS: INSULIN GLARGINE SYRINGE. SQ SCH (20:13)
[2019-07-25 22:50] VITALS: BP 118/80
[2019-07-26 03:00] VITALS: BP 92/72
[2019-07-26 07:00] VITALS: BP 99/71
[2019-07-26] MEDS: INSULIN LISPRO 300 UNITS/3 ML VIAL. SQ SCH ×5 (08:00→17:00)
[2019-07-26] MEDS: POTASSIUM CHLORIDE 20 MEQ TABLET.ER. PO SCH ×2 (08:03→21:27)
[2019-07-26] MEDS: MULTIVITAMIN I-VITE TABLET. PO SCH (08:04)
[2019-07-26] MEDS: APIXABAN 5 MG TABLET. PO SCH ×2 (08:05→21:27)
[2019-07-26] MEDS: FLUCONAZOLE 100 MG TABLET. PO SCH (08:06)
[2019-07-26] MEDS: SPIRONOLACTONE 25 MG TABLET PO SCH (08:17)
[2019-07-26] MEDS: LISINOPRIL 5 MG TABLET. PO SCH (08:18)
[2019-07-26] MEDS: BUMETANIDE 1 MG/4 ML VIAL. IV SCH ×2 (08:18→14:39)
[2019-07-26] MEDS: METOPROLOL SUCC 24HR ER 50 MG TAB.ER.24H. PO SCH (08:19)
[2019-07-26] MEDS: SENNOSIDES 8.6 MG TABLET PO SCH (08:19)
[2019-07-26] MEDS: metOLazone 2.5 MG TABLET PO SCH (08:20)
[2019-07-26] MEDS: NYSTATIN TOPICAL POWDER 15GM BOTTLE. TP SCH ×2 (08:21→21:28)
[2019-07-26 10:17] LABS: CALCIUM 8.8 mg/dL (8.5-10.1); CREATININE 1.5 mg/dL (0.7-1.3); GFR 48.1; MAGNESIUM 1.8 mg/dL (1.8-2.4); POTASSIUM 4.4 mmol/L (3.5-5.1)
[2019-07-26] MEDS: ANTI-COAG MONITOR BY PHARMACY. MC PRN (10:18)
[2019-07-26 11:11] VITALS: BP 98/68
[2019-07-26] MEDS: HYDROcodone/APAP 5/325MG 1 TAB TABLET PO PRN ×2 (12:41→21:27)
--- NOTE | 2019-07-26 14:27 | PN ---
DATE: 07/26/2019 SUBJECTIVE: The patient is resting, slightly propped up, sleeping comfortably, in no apparent distress. On questioning him, he denied any complaints, stated he had an uneventful night. PHYSICAL EXAMINATION: GENERAL: When I examined him, he looked slightly pale, but no jaundice, cyanosis or thyromegaly. No jugular venous distention. Continued to have bilateral lower extremity edema. VITAL SIGNS: His heart rate was 92, blood pressure was 92/72, temperature 97.6, respiratory rate was 18 and oxygen saturation was 96% on room air. The rest of clinical examination is stable. He continued to have severe erythema on his left groin area. His intake is 1100, output was 1125. LABORATORY DATA: Today's labs are still pending at the time of this dictation. As of yesterday, his serum sodium was 139, potassium 4.6, chloride 102, bicarbonate 35, anion gap of 2, BUN 26, creatinine 1.4, estimated GFR was 52 mL per minute. His glucose seems to be reasonably controlled. Calcium was 8.7. Total bilirubin, AST, ALT, alkaline phosphatase were normal. Total protein 6.4. Albumin 2.7. ASSESSMENT: 1. Acute on chronic systolic congestive heart failure seems to be well compensated. 2. Nonischemic cardiomyopathy, status post automatic implantable cardioverter defibrillator. Apparently, cardiac catheterization showed nonobstructive coronary artery disease. 3. Paroxysmal atrial fibrillation, status post previous cerebrovascular accident. He is currently off amiodarone. 4. Hypertension that seems to be well controlled. 5. Hyperlipidemia. 6. Type 2 diabetes mellitus seems to be better controlled, although his hemoglobin A1c was 10%. 7. Morbid obesity, obstructive sleep apnea, on CPAP. 8. History of pulmonary embolism and deep vein thrombosis. He is status post inferior vena cava filter. He is currently on Eliquis. 9. Chronic venous insufficiency. 10. Acute kidney injury; however, his creatinine has been stable around 1.4 mg/dL. 11. Severe intertriginous candidiasis involving particularly left groin area, currently on Nystatin powder and oral Diflucan. PLAN: Plan is obviously to transfer to [facility] if the insurance authorize that. ELIEL MOSER MD DR: LING/gia JOB#: [id number] / [id number]
[2019-07-26 15:00] VITALS: BP 109/67
[2019-07-26 19:00] VITALS: BP 131/80
--- NOTE | 2019-07-26 20:05 | NUR ---
Assessment completed. Dressing to left lower extremity loosened. Upon attempting to assess leg and offering to redress leg. Patient became angry and yelled at RN "Why are you doing this again." RN explained that each shift needed to assess patient. Patient said "Stop." RN asked Patient if he wanted to sleep and he said "Yes! are you done now."
--- NOTE | 2019-07-26 21:27 | NUR ---
RN woke up Patient to give HS medications. Patient became angry with RN and Stated "What are you doing now!" RN explained to Patient that she needed to give HS medication. Scheduled medication reviewed with Patient and Patient refused Potassium. Patient took other medications ordered. Nystatin applied but Patient became angry with RN stating "I'm fine!" Patient still not allowing RN to redress left lower extremity.
[2019-07-26] MEDS: GABAPENTIN 300 MG CAPSULE. PO SCH (21:28)
[2019-07-26] MEDS: ATORVASTATIN CALCIUM 20 MG TABLET PO SCH (21:28)
[2019-07-26] MEDS: INSULIN GLARGINE SYRINGE. SQ SCH (21:31)
[2019-07-26 23:00] VITALS: BP 125/92
[2019-07-27 03:00] VITALS: BP 114/79
--- NOTE | 2019-07-27 04:58 | NUR ---
Patient allowed RN to redress LLE this am. Area dressed with Aquacel AG extra, Kerlix and Medipore tape. No oozing noted at this time. Patient tolerated procedure without c/o. Chux changed under Patient as Patient dribbled urine on it. Patient became anxious with turning to change chux and would not turn enough for RN to assess coccyx.
[2019-07-27 07:00] VITALS: BP 111/73
--- NOTE | 2019-07-27 07:50 | PN ---
DATE: 07/27/2019 SUBJECTIVE: The patient is resting, slightly propped up in bed, sleeping comfortably, in no apparent distress. Nursing staff did not voice any concerns that he has an eventful night. We are still waiting for the insurance authorization for him to be transferred to [facility]. PHYSICAL EXAMINATION: GENERAL: On examining him this morning, he looked pale, but no jaundice, cyanosis or thyromegaly. No jugular venous distention. Marked bilateral limb edema. VITAL SIGNS: Her heart rate was 94, blood pressure 114/79, temperature 97.6, respiratory rate was 18 and oxygen saturation was 94% on room air. HEAD, EYES, EARS, NOSE AND THROAT: Showed normocephalic, atraumatic. NECK: Supple. CARDIAC: Normal first and second heart sounds. No gallop or murmur. CHEST: Clear to auscultation. No crepitation or rhonchi. ABDOMEN: Distended, soft, nontender. No guarding or rigidity. No organomegaly. All hernial orifice intact. He continued to have severe intertriginous candidiasis involving his left lower groin area in particular. The abdominal wall is covered and treated with nystatin and Diflucan. NEUROLOGIC: He is sleepy, but arousable. All his cranial nerves are intact. He moves extremities without difficulty, ambulates with a walker. His intake over the last 24 hours was 850, output was 700. LABORATORY DATA: As of yesterday, serum sodium 141, potassium 4.4, chloride 101, bicarbonate 33, anion gap of 7, BUN 27, creatinine 1.5, estimated GFR was 48 mL per minute. His blood sugar seems to be well controlled. Calcium was 8.8, magnesium was 1.8. His hemoglobin is 13, hematocrit 41 with normal white cell count and platelets. ASSESSMENT: 1. Acute on chronic systolic congestive heart failure, seems to be well compensated now. 2. Nonischemic cardiomyopathy, status post automatic implantable defibrillator. Cardiac catheterization showed nonobstructive coronary artery disease. 3. Paroxysmal atrial fibrillation, status post previous cerebrovascular accident. He is currently off amiodarone. 4. Hypertension, seems to be well controlled. 5. Hyperlipidemia, on atorvastatin. 6. Type 2 diabetes mellitus, seems to be better controlled, although his hemoglobin A1c was 10%. 7. Morbid obesity, obstructive sleep apnea, on CPAP. 8. History of pulmonary embolism and deep vein thrombosis, he is status post IVC filter. He is currently on Eliquis. 9. Chronic venous insufficiency. 10. Acute kidney injury; however, his creatinine has been stable. It did go up yesterday to 1.5. 11. Severe intertriginous candidiasis involving particularly his left groin area, currently on Nystatin powder and oral Diflucan. PLAN: Transfer to [facility] if and when the insurance authorizes that. ELIEL MOSER MD DR: LING/gia JOB#: [id number] / [id number]
[2019-07-27] MEDS: INSULIN LISPRO 300 UNITS/3 ML VIAL. SQ SCH ×6 (08:00→21:16)
[2019-07-27] MEDS: MULTIVITAMIN I-VITE TABLET. PO SCH (08:52)
[2019-07-27] MEDS: metOLazone 2.5 MG TABLET PO SCH (08:53)
[2019-07-27] MEDS: POTASSIUM CHLORIDE 20 MEQ TABLET.ER. PO SCH ×2 (08:53→21:09)
[2019-07-27] MEDS: METOPROLOL SUCC 24HR ER 50 MG TAB.ER.24H. PO SCH (08:54)
[2019-07-27] MEDS: LISINOPRIL 5 MG TABLET. PO SCH (08:55)
[2019-07-27] MEDS: APIXABAN 5 MG TABLET. PO SCH ×2 (08:55→21:16)
[2019-07-27] MEDS: BUMETANIDE 1 MG/4 ML VIAL. IV SCH (08:56)
[2019-07-27] MEDS: FLUCONAZOLE 100 MG TABLET. PO SCH (08:56)
[2019-07-27] MEDS: SPIRONOLACTONE 25 MG TABLET PO SCH (08:56)
[2019-07-27] MEDS: SENNOSIDES 8.6 MG TABLET PO SCH ×2 (09:00→13:06)
[2019-07-27] MEDS: NYSTATIN TOPICAL POWDER 15GM BOTTLE. TP SCH ×2 (09:10→21:00)
[2019-07-27] MEDS: HYDROcodone/APAP 5/325MG 1 TAB TABLET PO PRN (09:14)
[2019-07-27 11:00] VITALS: BP 95/59
[2019-07-27 15:00] VITALS: BP 92/67
[2019-07-27] MEDS: BUMETANIDE 2.5 MG/10 ML VIAL. IV SCH (16:23)
[2019-07-27 19:00] VITALS: BP 112/75
[2019-07-27] MEDS: GABAPENTIN 300 MG CAPSULE. PO SCH (21:09)
[2019-07-27] MEDS: INSULIN GLARGINE SYRINGE. SQ SCH (21:10)
[2019-07-27] MEDS: ATORVASTATIN CALCIUM 20 MG TABLET PO SCH (21:11)
[2019-07-27 23:00] VITALS: BP 112/82
[2019-07-28 03:00] VITALS: BP 118/73
[2019-07-28 07:00] VITALS: BP 116/75
--- NOTE | 2019-07-28 09:07 | SNU/HH DC ---
DISCHARGE ORDERS DISCHARGE INFORMATION: DISCHARGE DATE: Jul 28, 2019 FINAL DIAGNOSIS Problems Medical Problems: (1) Acute exacerbation of CHF (congestive heart failure) Status: Acute CONDITION ON DISCHARGE: Stable CODE STATUS: Code Status: Full LTAC: ADMIT TO LTAC: Yes POST DISCHARGE ORDERS: ACTIVITY ORDERS: Activity as tolerated DIET AFTER DISCHARGE: Cardiac TREATMENT/EQUIPMENT ORDERS: ADAPTIVE EQUIPMENT NEEDED: Walker RESPIRATORY EQUIPMENT NEEDED: Oxygen Physical Therapy For: Evalulation/Treatment Occupational Therapy For: Evaluation/Treatment Speech Language Pathology For: Evaluation/Treatment DISCHARGE MEDICATIONS: Home Meds Reported Medications Sennosides (SENNA LAXATIVE) 8.6 Mg Tablet, 8.6 MG PO DAILY for constipation, TAB 07/16/19 Albuterol Sulfate (Proair Hfa) 8.5 Gm Hfa.aer.ad, 2 PUFF IH PRN Q6HRS PRN for wheezing for 21 Days, #1 INHALER 0 Refills 07/16/19 Potassium Chloride (KLOR-CON M20) 20 Meq Tab.er.prt, 20 MEQ PO DAILY for replacement, TAB.SR 07/16/19 Polyethylene Glycol 3350 (POLYETHYLENE GLYCOL 3350) 2,500 Gm Powder, 3350 GM MC BID PRN for CONSTIPATION, MISC 07/16/19 Ondansetron Hcl (ZOFRAN) 4 Mg Tablet, 4 MG PO Q6HRS PRN for VOMITING, TAB 07/16/19 Insulin Aspart (NOVOLOG) 100 Unit/1 Ml Cartridge, 10 UNIT SQ BID for DM, EACH 07/16/19 Hydrocodone/Apap 10-325 (NORCO 10-325 TABLET) 1 Each Tablet, 1 TAB PO PRN Q4HRS PRN for PAIN, TAB 0 Refills 07/16/19 Magnesium Hydroxide (MILK OF MAGNESIA) 2,400 Mg/10 Ml Oral.susp, 1200 MG PO DAILY PRN for CONSTIPATION, MISC 07/16/19 Metolazone (METOLAZONE) 5 Mg Tablet, 5 MG PO DAILY for edema for 2 Days, #2 TAB 0 Refills 07/16/19 Melatonin (MELATONIN) 3 Mg Tab.rapdis, 3 MG PO HS for insomnia, TAB 07/16/19 Insulin Detemir (LEVEMIR) 100 Unit/1 Ml Vial, 45 UNIT SQ BID for DM, VIAL 07/16/19 Gabapentin (GABAPENTIN) 600 Mg Tablet, 300 MG PO HS for NEUROGENIC PAIN, TAB 07/16/19 Furosemide (FUROSEMIDE) 40 Mg Tablet, 40 MG PO BID for htn, TAB 07/16/19 Enalapril Maleate (ENALAPRIL MALEATE) 2.5 Mg Tablet, 2.5 MG PO DAILY for HTN, TAB 07/16/19 Carvedilol (CARVEDILOL ) 3.125 Mg Tablet, 3.125 MG PO BIDWMEALS for CARDIAC, TAB 07/16/19 Calcium Carbonate (CALCIUM CARBONATE) 500 Mg Tablet, 500 MG PO Q6HRS PRN for INDIGESTION, TAB 07/16/19 Bisacodyl (DULCOLAX) 10 Mg Supp.rect, 10 MG RC PRN DAILY PRN for CONSTIPATION, SUPP.RECT 0 Refills 07/16/19 Atorvastatin Calcium (ATORVASTATIN CALCIUM) 20 Mg Tablet, 20 MG PO HS for FOR CHOLESTEROL, #30 TAB 0 Refills 07/16/19 Apixaban (ELIQUIS) 5 Mg Tablet, 5 MG PO BID for Prophylaxis, TAB 07/16/19 Amiodarone Hcl (AMIODARONE HCL) 200 Mg Tablet, 200 MG PO DAILY for htn, TAB 07/16/19 Acetaminophen (ACETAMINOPHEN) 325 Mg Tablet, 2 TAB PO PRN Q4-6HRS PRN for pain or fever for 24 Days, #100 TAB 0 Refills 07/16/19 ELIEL MOSER MD Jul 28, 2019 09:07
[2019-07-28] MEDS: METOPROLOL SUCC 24HR ER 50 MG TAB.ER.24H. PO SCH (09:14)
[2019-07-28] MEDS: SENNOSIDES 8.6 MG TABLET PO SCH (09:14)
[2019-07-28] MEDS: HYDROcodone/APAP 5/325MG 1 TAB TABLET PO PRN ×2 (09:15→13:59)
[2019-07-28] MEDS: LISINOPRIL 5 MG TABLET. PO SCH (09:15)
[2019-07-28] MEDS: APIXABAN 5 MG TABLET. PO SCH (09:15)
[2019-07-28] MEDS: MULTIVITAMIN I-VITE TABLET. PO SCH (09:15)
[2019-07-28] MEDS: SPIRONOLACTONE 25 MG TABLET PO SCH (09:15)
[2019-07-28] MEDS: FLUCONAZOLE 100 MG TABLET. PO SCH (09:15)
[2019-07-28] MEDS: metOLazone 2.5 MG TABLET PO SCH (09:15)
[2019-07-28] MEDS: BUMETANIDE 2.5 MG/10 ML VIAL. IV SCH ×2 (09:16→13:59)
[2019-07-28] MEDS: NYSTATIN TOPICAL POWDER 15GM BOTTLE. TP SCH (09:16)
[2019-07-28] MEDS: POTASSIUM CHLORIDE 20 MEQ TABLET.ER. PO SCH (09:16)
[2019-07-28] MEDS: INSULIN LISPRO 300 UNITS/3 ML VIAL. SQ SCH ×4 (09:30→18:33)
--- NOTE | 2019-07-28 10:16 | DS ---
DATE OF DISCHARGE: HOSPITAL COURSE: The patient is a 59-year-old male patient who was admitted as a transfer from [facility] in [place] with worsening shortness of breath and weight gain and marked swelling of both lower extremities. He was seen in consultation by the deputy city clerk, copy coordinator as well as Infectious Disease specialist, started on IV bumetanide as well as metolazone and his shortness of breath has improved. He was continued on BiPAP machine at nighttime. He developed intertriginous candidiasis, particularly involving his left groin area, for which he was seen by the wound care team and treated with nystatin powder as well as Diflucan. However, the patient continued to require wound care, physical and occupational therapy and also respiratory therapy and a decision was made to transfer him to [facility] to continue with physical and occupational therapy, wound care, nutritional support, and BiPAP machine. PHYSICAL EXAMINATION: GENERAL: When I saw him today, he was sitting on the edge of the bed, eating his breakfast comfortably, in no apparent distress. No pallor, jaundice, cyanosis or thyromegaly. No jugular venous distention, bilateral lower limb edema. VITAL SIGNS: His heart rate was 104, blood pressure was 116/75, temperature 98, respiratory rate 24 and oxygen saturation was 96% on 2 liters of oxygen. HEAD, EYES, EARS, NOSE AND THROAT: Showed normocephalic, atraumatic. NECK: Supple. CHEST: Shows central trachea, equal bilateral expansion, air entry, vesicular sounds. No crepitation or rhonchi. ABDOMEN: Distended, soft, nontender. NEUROLOGIC: He was awake, alert, responding appropriately. All cranial nerves intact. EXTREMITIES: He moves extremities without difficulty, ambulates with a walker. SKIN: Showed that he has intertriginous candidiasis involving particularly left groin. He has also bilateral chronic venous stasis. His intake over the last 24-hour was 820, output was 2500. LABORATORY DATA: His most recent lab work as of yesterday showed a serum sodium 141, potassium 4.4, chloride 101, bicarbonate 33, anion gap of 7, BUN 27, creatinine 1.5, estimated GFR was 48 mL per minute, glucose 110, calcium was 8.8, magnesium 1.8. His white cell count was 6700, hemoglobin 13, hematocrit 41, MCV 93, and platelet count of 184,000. DISCHARGE MEDICATIONS: He was discharged to [facility] to continue on bumetanide 1 mg IV twice a day, fluconazole 100 mg once a day, spironolactone 25 mg once a day, potassium chloride 40 mEq twice a day, multivitamin with mineral 1 tablet once a day, metoprolol succinate 50 mg once a day, lisinopril 5 mg daily, Lantus insulin 30 units at bedtime, albuterol sulfate 2.5 mg by nebulizer every 4 hours, nystatin powder twice a day, metolazone 5 mg once a day, Senna 1 tablet once a day, trazodone 50 mg at bedtime, hydrocodone/APAP 5/325 two tablets every 4 hours, gabapentin 300 mg at bedtime, atorvastatin 20 mg at bedtime, apixaban 5 mg twice a day and Humalog insulin 10 units before meals, ondansetron 4 mg every 6 hours, magnesium hydroxide, milk of magnesia 30 mL p.o. daily p.r.n. for constipation, MiraLax 17 g twice a day, bisacodyl 10 mg suppositories rectally daily p.r.n. for constipation, and acetaminophen 650 mg every four hours and fentanyl citrate 50 mcg IV every 3 hours. FINAL DISCHARGE DIAGNOSES: 1. Acute on chronic systolic congestive heart failure seems to be well compensated. 2. Nonischemic cardiomyopathy, status post automatic implantable cardioverter-defibrillator, cardiac catheterization showed nonobstructive coronary artery disease. 3. Paroxysmal atrial fibrillation, status post previous cerebrovascular accident. He is currently off amiodarone. 4. Hypertension seems to be well controlled. 5. Hyperlipidemia, on atorvastatin. 6. Type 2 diabetes mellitus seems to be better controlled, although on admission his hemoglobin A1c was 10%. 7. Morbid obesity, obstructive sleep apnea, on CPAP. 8. History of pulmonary embolism and deep vein thrombosis, status post inferior vena cava filter and currently on Eliquis, chronic venous insufficiency. 9. Acute kidney injury; however, the creatinine has been stable around 1.5 mg/dL. 10. Severe intertriginous candidiasis involving particularly his left groin currently on nystatin powder and oral Diflucan. ELIEL MOSER MD DR: LING/gia JOB#: [id number] / [id number]
[2019-07-28 11:00] VITALS: BP 118/71
--- NOTE | 2019-07-28 12:32 | NUR ---
SS following up with discharge planning. Bed available at [facility]. Discharge orders received and phoned and faxed to [facility], ; fax [phone]. Pt will discharge today and go to [facility] at 1900 via [employer] transportation, . Pt, pt's RN, and pt's family notified.
[2019-07-28 15:00] VITALS: BP 107/71
--- NOTE | 2019-07-28 18:04 | NUR ---
Discharge: Report called to Brandy RN at 1547 to [facility]. Transport to pick up and delivery driver patient at 1900.
--- NOTE | 2019-07-28 18:56 | NUR ---
Discharge: patient assisted off of unit via wheelchair accompanied by transport. All belongings with patient including wallet, cell phone, well head pumper, CPAP and other belongings. IV in place.
== END 2019-07-28 18:40 | disposition short-term general hospital (02) | DRG 291 ==
LOC: ER 10:18 → 2 SOUTH 11:43
PROVIDERS: ADMIT Internal Medicine; ATTEND Internal Medicine
PROC: 5A09357 Assistance with Respiratory Ventilation, Less than 24 Consecutive Hours, Continuous Positive Airway Pressure (ICD-10-PCS; principal; 2019-07-16)
PROC: 5A09357 Assistance with Respiratory Ventilation, Less than 24 Consecutive Hours, Continuous Positive Airway Pressure (ICD-10-PCS; 2019-07-17)
PROC: 5A09357 Assistance with Respiratory Ventilation, Less than 24 Consecutive Hours, Continuous Positive Airway Pressure (ICD-10-PCS; 2019-07-18)
PROC: 5A09357 Assistance with Respiratory Ventilation, Less than 24 Consecutive Hours, Continuous Positive Airway Pressure (ICD-10-PCS; 2019-07-19)
PROC: 5A09357 Assistance with Respiratory Ventilation, Less than 24 Consecutive Hours, Continuous Positive Airway Pressure (ICD-10-PCS; 2019-07-20)
PROC: 5A09357 Assistance with Respiratory Ventilation, Less than 24 Consecutive Hours, Continuous Positive Airway Pressure (ICD-10-PCS; 2019-07-21)
PROC: 5A09357 Assistance with Respiratory Ventilation, Less than 24 Consecutive Hours, Continuous Positive Airway Pressure (ICD-10-PCS; 2019-07-23)
PROC: 5A09357 Assistance with Respiratory Ventilation, Less than 24 Consecutive Hours, Continuous Positive Airway Pressure (ICD-10-PCS; 2019-07-24)
PROC: 5A09357 Assistance with Respiratory Ventilation, Less than 24 Consecutive Hours, Continuous Positive Airway Pressure (ICD-10-PCS; 2019-07-25)
PROC: 5A09357 Assistance with Respiratory Ventilation, Less than 24 Consecutive Hours, Continuous Positive Airway Pressure (ICD-10-PCS; 2019-07-28)
DX: I13.0 Hypertensive heart and chronic kidney disease with heart failure and stage 1 through stage 4 chronic kidney disease, or unspecified chronic kidney disease (principal); I50.23 Acute on chronic systolic (congestive) heart failure; Z68.42 Body mass index [BMI] 45.0-49.9, adult; N17.9 Acute kidney failure, unspecified; I48.20 Chronic atrial fibrillation, unspecified; I42.8 Other cardiomyopathies; B37.2 Candidiasis of skin and nail; E10.22 Type 1 diabetes mellitus with diabetic chronic kidney disease; E10.42 Type 1 diabetes mellitus with diabetic polyneuropathy; E66.01 Morbid (severe) obesity due to excess calories; E78.00 Pure hypercholesterolemia, unspecified; E78.5 Hyperlipidemia, unspecified; G47.33 Obstructive sleep apnea (adult) (pediatric); I25.10 Atherosclerotic heart disease of native coronary artery without angina pectoris; I87.2 Venous insufficiency (chronic) (peripheral); L30.9 Dermatitis, unspecified; N18.9 Chronic kidney disease, unspecified; Z79.01 Long term (current) use of anticoagulants; Z79.4 Long term (current) use of insulin; Z79.899 Other long term (current) drug therapy; Z82.49 Family history of ischemic heart disease and other diseases of the circulatory system; Z83.3 Family history of diabetes mellitus; Z86.711 Personal history of pulmonary embolism; Z86.718 Personal history of other venous thrombosis and embolism; Z86.73 Personal history of transient ischemic attack (TIA), and cerebral infarction without residual deficits; Z95.810 Presence of automatic (implantable) cardiac defibrillator; Z95.828 Presence of other vascular implants and grafts; F32.9 Major depressive disorder, single episode, unspecified; F41.9 Anxiety disorder, unspecified; Z90.49 Acquired absence of other specified parts of digestive tract
CPT/HCPCS: 36415; 71046; 80048; 80053; 82553; 82962; 83036; 83605; 83690; 83735; 83880; 84436; 84439; 84443; 84480; 84484; 85025; 85027; 93005; 93925; 94660; 96374; 96375; J1815; J1940; J3010; J3490; J7042; 97110; 97116; 97140; 97530; 97535; 99285-25; G0378